=== PATIENT | female | born 1965 | race Caucasian/White ===

== ENCOUNTER 2017-03-24 17:51 | Emergency (ER) | payer OTHER, MEDICAID ==
[~2017-03-24] VITALS: Ht 175.3 cm; Wt 88.5 kg
[~2017-03-24 17:51] MED LIST: ACCUNEB SO1.25 MG/1; ACETAMINOPHEN-1 EAC1 PO; ACYCLOVIR 400400 MG PO; ALBUTEROL INH; ALBUTEROL SUL5 MG/M1; ALPRAZOLAM; AZITHROMYCIN 2250 MG PO; BACTRIM DS TAB1 EACH PO; CHILDREN'S1000 UNIT PO; CIPRO500 MG PO; CIPROFLOXACIN500 M1 PO; CIPROFLOXACIN500 M3 PO; CLONAZEPAM 0.50.5 M1 PO; COMBIVENT INH; CORTISPORIN OTI10 M2 OT; CRUTCH1 EACH MC; DELSYM COU30 MG/5 M1 PO; DIFLUCAN150 M1 PO; DIFLUCAN200 MG PO; DOXYCYCLINE 10100 M1 PO; DOXYCYCLINE 10100 MG PO; DUONEB 2.5-0.5 M3 ML INH; FLAGYL500 MG PO; FLEXERIL PO; FLOMAX PO; FLOMAX0.4 MG PO; FLONASE 0.05%50 MCG NASAL; FLOVENT; HYDROCHLOROTHIA25 M2 PO; HYDROCODONE-AP1 EAC6 PO; IBUPROFEN 800800 M1 PO; IBUPROFEN 800800 MG PO; KEFLEX500 MG PO; LATUDA20 MG PO; LEVSIN0.125 MG PO; LIDOCAINE VISC100 M1 TOP; LISINOPRIL; LOPRESSOR HCT1 EAC1; LOPRESSOR100 MG; LOPRESSOR50 PO; LORTAB 5-500 T1 EAC1 PO; MACROBID 100 M100 M3 PO; MEDROLDOSEPACK PO; METOPROLOL SUCC50 MG PO; MUCINEX DM ER1 EACH PO; NAPROSYN250 MG PO; NAPROSYN500 MG PO; NITROQUICK0.4 MG SL; NORCO 5-325 TA1 EAC1 PO; NORCO 5-325 TA1 EACH PO; ONDANSETRON HCL4 M2 PO; OXCARBAZEPINE300 M1 PO; OXCARBAZEPINE600 MG PO; PAXIL10 MG PO; PEPCID20 MG; PERCOCET 5-3251 EACH PO; PERCOCET PO; PHENAZOPYRIDIN200 M2 PO; PHENERGAN 25 MG25 M1 PO; PHENERGAN 25 MG25 MG PO; PREDNISONE 10 M10 MG PO; PREDNISONE 20 M20 M1; PREDNISONE 20 M20 M1 PO; PREDNISONE50 MG PO; PRINIVIL20 M1 PO; PROAIR HFA8.5 GM; PROAIR HFA8.5 GM INH; PROMETHAZINE D480 ML PO; PROMETHAZINE-C120 ML PO; PROMETHAZINE12.5 M1; PROMETHAZINE12.5 M1 PO; PROTONIX40 M4 PO; PROVENTIL HFA6.7 G1; PROVENTIL HFA6.7 G1 INH; SINGULAIR 10 MG10 M1 PO; SYMBICORT160 MCG/4. INH; TAMSULOSIN HCL0.4 M1 PO; TESSALON PERLE100 M1 PO; TESSALON PERLE100 MG PO; TOPROL XL100 MG; TOPROL XL100 MG PO; TRILEPTAL150 MG PO; ULTRAM 50MG TAB50 MG PO; VENTOLIN HFA 1818 GM INH; VIBRAMYCIN 100100 M2 PO; VICODIN; VICODIN 5-5001 EACH; VICODIN ES TAB1 EACH PO; VITAMIN D; XANAX XR1 MG PO; ZANTAC 150MG T150 MG PO; ZESTORETIC 10-1 EACH PO; ZOFRAN 4 MG ORAL4 M1 DIS; ZOFRAN4 MG PO; ZPAK PO; ZYPREXA
[2017-03-24 17:55] VITALS: BP 145/83
[2017-03-24] MEDS ORDERED: STRATTERA10 MG PO (17:59)
[2017-03-25] MEDS ORDERED: MEDROL DOSPAK21 TA1 PO (02:06)
[2017-03-25] MEDS ORDERED: K-DUR 20 MEQ T20 MEQ PO (02:06)
[2017-03-25] MEDS ORDERED: BACTRIM DS TAB1 EACH PO (02:06)
[2017-03-25] MEDS ORDERED: TESSALON PERLE100 MG PO (02:06)
[2017-03-25] MEDS ORDERED: ULTRAM50 MG PO (02:06)
[2017-03-25] MEDS ORDERED: KEFLEX500 M1 PO (02:32)
[2017-03-25] MEDS ORDERED: HYDROCODON-ACE1 EAC7 PO (02:32)
== END 2017-03-24 19:00 | disposition left against medical advice (07) ==
LOC: M.ERS 17:51
DX: Z53.21 Procedure and treatment not carried out due to patient leaving prior to being seen by health care provider (principal)

== ENCOUNTER 2017-03-25 00:38 | Emergency (ER) | payer OTHER, MEDICAID ==
[~2017-03-25] VITALS: Ht 175.3 cm; Wt 88.5 kg
--- NOTE | ~2017-03-25 | EKG ---
[place] [address] ELECTROCARDIOGRAM REPORT Name: YUE ANDRADE Room: [facility]#: [id number] Admission: 03/25/17 Attend Phys: Discharge: 03/25/17 Date of : 69 Report #: [id number] THIS REPORT FOR: //name// [facility] ED Test Date: 2017-03-25 Test Time: 01:04:45 Pat Name: YUE ANDRADE Department: Room: Gender: F Cerner Analyst: WIN Luo : 1965 Requested By: Blu Casas Order Number: [id number] MD: Measurements Intervals [place] Rate: 85 P: 20 CO: 146 QRS: -12 QRSD: 98 T: 52 QT: 444 QTc: 528 Interpretive Statements Sinus rhythm Probable left atrial enlargement Low voltage, precordial leads Borderline repolarization abnormality Prolonged QT interval Compared to ECG 06/30/2016 11:58:53 Low QRS voltage now present Prolonged QT interval now present [email or web address] By: 3 0104 Epiphany Epiphany, /EPI
[~2017-03-25 00:38] MED LIST changes: +STRATTERA10 MG PO
[2017-03-25 01:22] LABS: INFLUENZA A ANTIGEN None Detected (None Detect); INFLUENZA B ANTIGEN None Detected (None Detect)
[2017-03-25 01:35] LABS: ABSOLUTE EOSINOPHILS 0.3 thou/uL (0.0-0.7); ABSOLUTE LYMPHOCYTES 2.4 thou/uL (0.8-5.3); ABSOLUTE MONOCYTES 0.6 thou/uL (0.0-1.2); ABSOLUTE NEUTROPHILS 5.8 thou/uL (1.6-8.1); BASOPHILS 0.4 %; EOSINOPHILS 2.8 %; HEMATOCRIT 37.1 % (37.0-47.0); HEMOGLOBIN 12.9 gm/dL (12.0-15.0); LYMPHOCYTES 26.6 %; MCH 31.6 pg (26.0-34.0); MCHC 34.7 g/dL (28.0-37.0); MCV 91.1 fL (80.0-100.0); MONOCYTES 6.8 %; MPV 7.8 fl. (7.2-11.1); NUCLEATED RBCS 0 /100WBC; PLATELET COUNT* 297 thou/uL (150-400); POLYS 63.4 %; RBC 4.08 mil/uL (4.20-5.00); RDW-CV 12.2 % (10.5-14.5); WBC 9.2 thou/uL (4.0-11.0)
[2017-03-25 01:44] LABS: ANION GAP 13 mmol/L (7-16); BUN 11 mg/dL (7-18); CALCIUM 9.3 mg/dL (8.5-10.1); CHLORIDE 101 mmol/L (98-107); CO2 25 mmol/L (21-32); CREATININE 1.2 mg/dL (0.6-1.3); GLUCOSE 142 mg/dL (70-99); SODIUM 139 mmol/L (136-145)
[2017-03-25 01:49] LABS: POTASSIUM 2.8 mmol/L (3.5-5.1)
[2017-03-25 01:55] LABS: ALBUMIN 3.6 g/dL (3.4-5.0); ALKALINE PHOSPHATASE 115 U/L (46-116); NT-PRO BRAIN NAT PEPTIDE 98 pg/mL (<300); SGOT 33 U/L (15-37); SGPT 27 U/L (30-65); TOTAL BILIRUBIN 0.3 mg/dL (<0.1-1.0); TOTAL PROTEIN 7.4 g/dL (6.4-8.2); TROPONIN-I LEVEL <0.06 ng/mL (<0.06)
[2017-03-25] MEDS ORDERED: BACTRIM DS TAB1 EACH PO (02:06)
[2017-03-25] MEDS ORDERED: K-DUR 20 MEQ T20 MEQ PO (02:06)
[2017-03-25] MEDS ORDERED: TESSALON PERLE100 MG PO (02:06)
[2017-03-25] MEDS ORDERED: ULTRAM50 MG PO (02:06)
[2017-03-25] MEDS ORDERED: MEDROL DOSPAK21 TA1 PO (02:06)
[2017-03-25] MEDS ORDERED: KEFLEX500 M1 PO (02:32)
[2017-03-25] MEDS ORDERED: HYDROCODON-ACE1 EAC7 PO (02:32)
[2017-03-25 02:38] VITALS: BP 137/77
== END 2017-03-25 02:40 | disposition home or self-care (01) ==
LOC: M.ERS 00:38
PROVIDERS: Emergency Medicine
DX: N61.0 Mastitis without abscess (principal); J40 Bronchitis, not specified as acute or chronic; E87.6 Hypokalemia; F32.9 Major depressive disorder, single episode, unspecified; I10 Essential (primary) hypertension; J44.9 Chronic obstructive pulmonary disease, unspecified; F41.9 Anxiety disorder, unspecified; F17.210 Nicotine dependence, cigarettes, uncomplicated; Z86.14 Personal history of Methicillin resistant Staphylococcus aureus infection; Z88.5 Allergy status to narcotic agent; Z86.73 Personal history of transient ischemic attack (TIA), and cerebral infarction without residual deficits; Z90.49 Acquired absence of other specified parts of digestive tract; Z88.0 Allergy status to penicillin; Z88.1 Allergy status to other antibiotic agents; Z91.040 Latex allergy status; Z88.8 Allergy status to other drugs, medicaments and biological substances

== ENCOUNTER 2017-04-11 13:09 | Inpatient (IN) | payer OTHER, MEDICAID ==
[~2017-04-11] VITALS: Ht 175.3 cm; Wt 95.3 kg
[~2017-04-11 13:09] MED LIST changes: +HYDROCODON-ACE1 EAC7 PO; +K-DUR 20 MEQ T20 MEQ PO; +KEFLEX500 M1 PO; +MEDROL DOSPAK21 TA1 PO; +ULTRAM50 MG PO
[2017-04-11 13:13] VITALS: BP 166/108
[2017-04-11 14:55] LABS: ABSOLUTE EOSINOPHILS 0.1 thou/uL (0.0-0.7); ABSOLUTE LYMPHOCYTES 2.5 thou/uL (0.8-5.3); ABSOLUTE MONOCYTES 0.6 thou/uL (0.0-1.2); ABSOLUTE NEUTROPHILS 7.1 thou/uL (1.6-8.1); BASOPHILS 0.2 %; EOSINOPHILS 1.1 %; HEMOGLOBIN 15.4 gm/dL (12.0-15.0); MCH 32.1 pg (26.0-34.0); MCHC 33.4 g/dL (28.0-37.0); MONOCYTES 5.5 %; MPV 8.3 fl. (7.2-11.1); NUCLEATED RBCS 0 /100WBC; PLATELET COUNT* 250 thou/uL (150-400); POLYS 69.2 %; RBC 4.79 mil/uL (4.20-5.00); RDW-CV 12.9 % (10.5-14.5); WBC 10.3 thou/uL (4.0-11.0)
[2017-04-11 15:10] LABS: ANION GAP 11 mmol/L (7-16); BUN 13 mg/dL (7-18); CALCIUM 10.1 mg/dL (8.5-10.1); CHLORIDE 103 mmol/L (98-107); CO2 26 mmol/L (21-32); CREATININE 1.3 mg/dL (0.6-1.3); GLUCOSE 139 mg/dL (70-99); SODIUM 140 mmol/L (136-145)
[2017-04-11 15:21] LABS: ALBUMIN 3.9 g/dL (3.4-5.0); ALKALINE PHOSPHATASE 116 U/L (46-116); NT-PRO BRAIN NAT PEPTIDE 125 pg/mL (<300); SGOT 26 U/L (15-37); SGPT 28 U/L (30-65); TOTAL BILIRUBIN 0.5 mg/dL (<0.1-1.0); TROPONIN-I LEVEL <0.06 ng/mL (<0.06)
[2017-04-11 16:21] LABS: INFLUENZA A ANTIGEN None Detected (None Detect); INFLUENZA B ANTIGEN None Detected (None Detect)
[2017-04-11 17:58] LABS: URINE BILIRUBIN NEGATIVE (Negative); URINE BLOOD TRACE (Negative); URINE CLARITY CLEAR; URINE COLOR YELLOW; URINE GLUCOSE-RANDOM NEGATIVE (Negative); URINE KETONES NEGATIVE (Negative); URINE LEUKOCYTES-REFLEX TRACE (Negative); URINE NITRITE-REFLEX NEGATIVE (Negative); URINE PROTEIN NEGATIVE (Negative); URINE SPECIFIC GRAVITY <= 1.005 (1.005-1.030); URINE UROBILINOGEN 0.2 E.U./dl (0.2-1.0)
[2017-04-11 18:08] LABS: AMP/METHAMP Negative (Negative); BARBITURATES Negative (Negative); BENZODIAZEPINES Negative (Negative); COCAINE Negative (Negative); METHADONE Negative (Negative); OPIATES Negative (Negative); PCP Negative (Negative); THC Negative (Negative)
[2017-04-11 18:15] LABS: MUCUS None Seen strn/LPF (None Seen); SQUAMOUS >10 Many /LPF (0-3)
[2017-04-11 18:16] LABS: CALCIUM OXALATE 4-10 Moderate /LPF (None Seen)
[2017-04-11 18:17] LABS: CASTS None Seen /LPF (None Seen); URINE WBC-REFLEX 0-5 Rare /HPF (0-5)
[2017-04-11 18:18] LABS: URINE RBC 0-2 Rare /HPF (0-2)
[2017-04-11 20:03] VITALS: BP 129/73
[2017-04-11 20:30] VITALS: BP 138/97
[2017-04-11] MEDS ORDERED: TOPAMAX 25 MG T25 M1 PO (21:44)
[2017-04-11] MEDS ORDERED: LOPERAMIDE 2 MG2 M1 PO (21:45)
[2017-04-11 23:54] VITALS: BP 109/68
--- NOTE | 2017-04-12 03:00 | NUR ---
REC PT FROM ED APPROX 2029, PT A/OX4, ANXIOUS, STATING SHE NEEDS HER ANXIETY MEDICATION, REVIEWED HOME MEDS, DR MOORE STARTED HOME MEDS, MEDS/ASSESSMENT COMPLETED PER CHARTING, VSS, IV TO THE R-FOOT WITH NS RUNNING AT THIS TIME, PT UP WITH ASSIST X1, REC FALL AT HOME <3 MONTHS, FREE FROM PAIN, HOURLY ROUNDING/FALL PRECAUTIONS IN PLACE, PT EDUCATED ON ENVRIOMENT OF ROOM, CALL LIGHT, AND PT STATED, "I'LL PUT THE BUTTON ON THE CALL LIGHT, BUT IT'S A I'LL HIT IT, I'LL SET THE BED ALARM OFF, AND YOU BETTER COME RUNNING FOR ME,", AFTER PT HS MEDS GIVEN PT WAS ABLE TO REST, 2ND BOLUS OF NS DUE TO ELEVATED LACTIC ACID INFUSING AT THIS TIME PER DR DILL ORDERS, WILL CONT TO MONITOR.
[2017-04-12 04:17] VITALS: BP 129/76
[2017-04-12 05:08] LABS: HEMATOCRIT 36.1 % (37.0-47.0); MCH 31.2 pg (26.0-34.0); MCHC 34.5 g/dL (28.0-37.0); MPV 8.2 fl. (7.2-11.1); NUCLEATED RBCS 0 /100WBC; PLATELET COUNT* 189 thou/uL (150-400); RBC 3.99 mil/uL (4.20-5.00); RDW-CV 12.5 % (10.5-14.5); WBC 11.3 thou/uL (4.0-11.0)
[2017-04-12 05:20] LABS: CALCIUM 9.1 mg/dL (8.5-10.1); CREATININE 1.2 mg/dL (0.6-1.3); POTASSIUM 3.9 mmol/L (3.5-5.1)
[2017-04-12 05:36] LABS: HEMOGLOBIN 12.5 gm/dL (12.0-15.0); MCV 90.5 fL (80.0-100.0)
[2017-04-12 06:11] LABS: ABSOLUTE LYMPHOCYTES 1.4 thou/uL (0.8-5.3); ABSOLUTE MONOCYTES 0.1 thou/uL (0.0-1.2); ABSOLUTE NEUTROPHILS 9.8 thou/uL (1.6-8.1); ANISOCYTOSIS 1+; PLATELET ESTIMATE ADEQUATE; POIKILOCYTOSIS 1+
[2017-04-12 08:00] VITALS: BP 120/70
--- NOTE | 2017-04-12 09:30 | NUR ---
RECEIVED REPORT. ASSUMED CARE OF PT AT 0730. VSS. O2 SAT 97% ON ROOM AIR. PT A&O X4, BUT DROWSY. MANAGER FLEET IN PLACE TRACING SR. IV PATENT AND INFUSING. PT EATING AND DRINKING WITHOUT ISSUE. PT UP WITH STANDBY ASSIST TO THE BATHROOM. AM ASSESSMENT AND VITALS COMPLETED CHARTED. PT REPORTS CHEST DISCOMFORT THAT HAS BEEN GOING ON FOR 6 WEEKS, BUT DENIES NEEDING MEDICATIN FOR PAIN. PT INFORMED OF PLAN OF CARE; PT COMMUNICATES UNDERSTANDING. PT IMPULSIVE AT TIMES AND DOES NOT ALWAYS PUSH THE CALL LIGHT FOR ASSISTANCE WITH AMBULATING. EDUCATION GIVEN ON IMPORTANCE OF CALLING FOR HELP - PT COMMUNICATES UNDERSTANDING BUT STATES "IF I HAVE TO GET TO THE BATHROOM, THEN I'M GONNA GET THERE". HIGH FALL RISK PRECATUTIONS IN PLACE. CALL LIGHT IS WITHIN REACH. BED ALARM IS ON. WILL CONTINUE TO MONITOR.
--- NOTE | 2017-04-12 10:23 | EKG ---
[place] [address] ELECTROCARDIOGRAM REPORT Name: RAYMOND,YUE LALA Room: [address] ADM IN M.R.#: [id number] Admission: 04/11/17 Attend Phys: Yifan Carbajal MD Discharge: Date of : 69 Report #: [id number] THIS REPORT FOR: //name// ED Test Date: 2017-04-11 Test Time: 13:14:52 Pat Name: YUE ANDRADE Department: Room: [facility] Gender: F Clinical Assoc: Emily NIXON : 1965 Requested By: Talya Tapia Order Number: [id number] MD: Polo Sanford Measurements Intervals [place] Rate: 116 P: 49 OR: 146 QRS: 18 QRSD: 94 T: 86 QT: 329 QTc: 458 Interpretive Statements Sinus tachycardia Minimal ST depression, lateral leads Compared to ECG 03/25/2017 01:04:45 ST (T wave) deviation now present Sinus rhythm no longer present Prolonged QT interval no longer present Electronically Signed On 04-12-2017 10:23:29 MEDICAL SCRIBE by Polo Sanford [email or web address] <ELECTRONICALLY SIGNED> By: Polo Sanford MD, [facility] 04/12/17 1023 1314 1314 Polo Sanford MD, [facility] /EPI
[2017-04-12 12:20] VITALS: BP 132/74
--- NOTE | 2017-04-12 14:02 | NUR ---
CM ASSESSMENT: Pt is A&O. Resides at home with her mon and kids. Independent with ADLs. No DME. Hx of HH with [facility]. No hx of SNF. Supportive family that is involved in POC. Goal is to return home once medically stable. Following for dc needs.
[2017-04-12 15:39] VITALS: BP 124/69
--- NOTE | 2017-04-12 15:45 | NUR ---
PT PRESSED CALL LIGHT AND THEN BEGAN SCREAMING FOR HELP FROM HER ROOM - UPON ENTERING THE ROOM PT WAS SITTING UP ON THE BED, ROCKING AND CRYING. PT STATES "I FEEL HOT AND SWEATY AND THINK I'M GOING TO HAVE A SEIZURE!" PT NOT SWEATY TO TOUCH. NEURO CHECKS DONE - NO ABNORMALITIES NOTED. PT STATES HER LEGS FEEL NUMB. PT DISREGARDING EDUCATION DONE EARLIER IN THE SHIFT ABOUT THE IMPORTANCE OF AVOIDING COLD FLUIDS/ TEMPERATURES TO MINIMIZE PAIN FROM REYNAUDS SYNDROME. PT REQUESTING THE ROOM BE " COLD POSSIBLE" AND HAS ASKED FOR 2 ICE PACKS. THERAPEUTIC COMMUNICATION INITIATED, PT CALMED SOMEWHAT. REASSURANCE GIVEN. DR DE LEON NOTIFIED OF EPISODE. WILL AWAIT ORDERS. HIGH FALL RISK PRECAUTIONS IN PLACE. BED ALARMS IS ON. CALL LIGHT WITHIN REACH. WILL CONTINUE TO MONITOR.
--- NOTE | 2017-04-12 19:02 | NUR ---
VSS. O2 SAT >90% ON ROOM AIR. QA DEVELOPER IN PLACE TRACING SR/ST. PT HAS REPORTED NO OTHER PAIN OTHER THAN THE CHEST PAIN SHE REPORTED THIS AM - PT HAS DENIED WANTING MEDICATION FOR PAIN. PT CALMED DOWN FROM EARLIER EPISODE OF ANXIETY. DR DE LEON NOTIFED OF EPISODE - NICOTENE PATCH ORDERED. PT EATING AND DRINKING WITHOUT ISSUE. PT COMPLAINING OF HOT FLASHES, SWEATING, AND ANXIETY - WANTS THE NICOTENE PATCH. PT REASSURED THAT IT WOULD BE ADMINISTERED JUST SOON IT IS VERIFIED BY PHARMACY. PT COMMUNICATES UNDERSTANDING. PT UP TO THE BATHROOM WITH STANDBY ASSIST. VOIDING WITHOUT ISSUE. FAMILY VISITED THIS ATERNOON. IV PATENT AND INFUSING. PT REPOSITIONS SELF FREQUENTLY IN THE BED. HIGH FALL RISK PRECATIONS IN PLACE. CALL LIGHT IS WITHIN REACH. HOURLY ROUNDING PERFORMED. WILL CONTINUE TO MONITOR FOR DURATION OF SHIFT.
[2017-04-13] VITALS (8 sets, daily range): BP systolic 117–176; BP diastolic 53–87
--- NOTE | 2017-04-13 05:09 | NUR ---
PATIENT SLEPT PART OF THE NIGHT. NICOTINE PATCH WAS PLACE BEGINNING OF SHIFT PER PATIENT REQUEST. PATIENT BECAME INCREASINGLY ITCHY THROUGHOUT THE SHIFT. PATIENT HAD ASKED IF NICOTINE PATCH HAD LATEX IN IT INFORMED HER THAT IT SHOULDN'T. BENADRYL PO WAS GIVEN ABOUT 0130. PATIENT CALLED OUT ABOUT 0330 STILL COMPLAINING OF ITCHING. PATIENT WAS SCRATCHING ALL OVER AND ROLLING AROUND THE BED FREAKING OUT. NICOTINE PATCH WAS TAKEN OFF AND IV BENADRYL WAS GIVEN. PATIENT CALMED DOWN AFTER THAT. IV REMAINS TO RIGHT FOOT WITH IV FLUIDS INFUSING. WILL CONTINUE TO MONITOR.
--- NOTE | 2017-04-13 07:57 | CON ---
[address] [address] CONSULTATION Name: YUE ANDRADE Room: [address] IN M.R.#: [id number] Admission: 04/11/17 Attend Phys: Yifan Carbajal MD Discharge: Date of : 69 Report #: [id number] THIS REPORT FOR: //name// CC: Yifan Carbajal [facility] physician/PCP DATE OF SERVICE: 04/12/2017 INFECTIOUS DISEASE CONSULTATION ATTENDING PHYSICIAN: Yifan Carbajal MD REASON FOR EVALUATION: Pneumonitis. HISTORY OF PRESENT ILLNESS: Chart reviewed, patient is examined. This is a 51-year-old whom I am familiar with. She has extensive medical history given her age, including some COPD, lupus, history of pneumonitis. She was admitted with several days to a week history of progressive dyspnea with cough, some of which has been productive; other times more dry and hacky. She has had intermittent fevers, sweats, has had some anorexia, poor p.o. intake and perhaps weight loss as well. Evaluation included chest x-ray, which showed no acute process. Lactic acid was initially elevated at 2.1, it has increased to 3.3. Blood cultures are sterile thus far. She is not encephalopathic. She was empirically started on antibacterial antibiotics with vancomycin. ALLERGIES: LISTED TO TAPE, PENICILLIN, GUAIFENESIN, PROCHLORPERAZINE, MORPHINE, ERYTHROMYCIN, TOBRAMYCIN, CLINDAMYCIN, CLARITHROMYCIN, TRAMADOL, KETOROLAC, TAMSULOSIN, LEVOFLOXACIN, AND LATEX. CURRENT MEDICATIONS: Include topiramate, lisinopril, vancomycin, pantoprazole, methylprednisolone, clonazepam, montelukast, enoxaparin, ipratropium and albuterol inhaler, p.r.n. analgesics, antiemetics. 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 SOCIAL HISTORY: Continues to smoke, occasional ethanol. Denies illicit drug use. FAMILY HISTORY: Noncontributory. REVIEW OF SYSTEMS: As above. PHYSICAL EXAMINATION: [place] [address] CONSULTATION Name: YUE ANDRADE LALA Room: [address] IN [facility]#: [id number] Admission: 04/11/17 Attend Phys: Yifan Carbajal MD Discharge: Date of : 69 Report #: [id number] GENERAL: She appears chronically ill, undernourished. She is pleasant, cooperative. She is in [id number] distress. She does have occasional cough. VITAL SIGNS: Temperature 98.9, pulse 94, respirations 24, blood pressure 120/70. SKIN: Warm, dry, no rashes. HEENT: Otherwise, unremarkable. NECK: Supple. LUNGS: Scattered coarse breath sounds. HEART: Regular, occasional ectopy, may have a soft systolic murmur. ABDOMEN: Soft, nontender. There is no distention. I do not appreciate any peritoneal signs. GENITOURINARY AND RECTAL: Deferred. LABORATORY DATA: Lactic acid 3.3. Blood cultures sterile thus far. CBC: White count 11.3, H and H 12.5 and 36.1, platelets 189 and leukocyte neutrophilia. Electrolytes: Sodium 138, potassium 3.9, chloride 108, bicarbonate is 19, anion gap of 11, BUN and creatinine 12 and 1.2. Estimated GFR 48. Lactic acid had peaked to 5.5. Urinalysis 0-[address] chest showed no acute-appearing abnormalities, right lower lobe nodule. Influenza antigen was negative. Liver functions unremarkable. ASSESSMENT: Productive cough at times. The patient likely has underlying significant reactive airway disease, may well be viral. We will continue vancomycin. She has multiple drug hypersensitivities, at least adverse drug effects. We will see if we can obtain a sputum and go ahead and check a viral respiratory panel as well. At this point, she is not overtly toxic. Try to maintain supportive care, increase activity, optimize her nutritional status. <ELECTRONICALLY SIGNED> By: Rikki Gill MD 04/13/17 0757 1039 [id number] Gill MD /nt
--- NOTE | 2017-04-13 08:00 | NUR ---
AM ASSESSMENT COMPLETE, DEFER TO COMPUTER CHARTING. ELECTRICAL INSTALLER TRACKING SR. ALERT ORIENTED, ANXIOUS - REASSSURANCE GIVEN. REPORTING CONTINUES TO HAVE CHEST PRESSURE AND GASTRIC REFLUX - REPORTS DISCOMFORT SAME SINCE ADMISSION, MAYBE SLIGHTLY LESS. IV INFUSING IN RIGHT FOOT. CALL LIGHT WITHIN REACH, WILL MONITOR.
--- NOTE | 2017-04-13 10:02 | CON ---
[address] [address] CONSULTATION Name: YUE ANDRADE Room: [address] IN M.R.#: [id number] Admission: 04/11/17 Attend Phys: Yifan Carbajal MD Discharge: Date of : 69 Report #: [id number] THIS REPORT FOR: //name// CC: Yifan Carbajal [facility] physician/PCP REASON FOR CONSULTATION: Cough and shortness of breath. HISTORY OF PRESENT ILLNESS: The patient is a 51-year-old female patient with history of common variable immunodeficiency. She follows pulmonary group at [facility] for asthma and COPD. Unfortunately, she continues to smoke. She is on Advair and bronchodilator at home. She presented to the hospital with cough and congestion associated with shortness of breath. She reports that she has seen multiple physicians and multiple specialties in the past, and now she is aware she has common variable immunodeficiency and she has no immunity against infection. She had multiple hospitalizations in other facilities for infection in the past. Apparently, she received two courses of antibiotics, doxycycline and Bactrim over the last few days. Also, she had azithromycin that she has to take it, but she developed shortness of breath, worsening, and she presented to the ER. She was admitted for further evaluation. She denied any nausea, vomiting, travel or sick contact. She denies any lower extremity edema, calf tenderness, headache or blurring of vision. ALLERGIES: MORPHINE, PENICILLIN, TRAMADOL, CLARITHROMYCIN, CLINDAMYCIN, GUAIFENESIN, KETOROLAC, COMPAZINE, LEVAQUIN, TAPE AND TOBRAMYCIN. HOME MEDICATIONS: She is on DuoNeb, Tessalon Perles, potassium supplement. She was on Septra, Medrol-Dosepak, Tramadol. She is currently on albuterol sulfate, Xanax, lisinopril, Flonase, Singulair, Symbicort, paroxetine, naproxen. PAST MEDICAL HISTORY: She has history of Raynaud's syndrome, common variable immunodeficiency, history of TIA, history of DVT in 2007, history of depression, ovarian cyst, asthma, COPD. She has history of factor V Leiden. She had history of recurrent sinusitis. She is diabetic and has gastroesophageal reflux disease. She has history of C. diff, VRE and MRSA in 2008. She has history of kidney stone disease, bowel resection. PAST SURGICAL HISTORY: Includes cholecystectomy, ovarian cyst. SOCIAL HISTORY: She continues to smoke 1 pack of cigarettes per day, does not drink alcohol excessively, does not abuse drugs. There is a mention of meth abuse in her chart. FAMILY HISTORY: [place] [address] CONSULTATION Name: RAYMONDYUE ANN Room: [address] IN M.R.#: [id number] Admission: 04/11/17 Attend Phys: Yifan Carbajal MD Discharge: Date of : 69 Report #: [id number] REVIEW OF SYSTEMS: She denied fever, chills or blurring of vision. She has history of sinus congestion, but she denied dysphagia. She has history of cough which is chronic. She denies any anxiety, depression. The rest of the review system was negative. PHYSICAL EXAMINATION: VITAL SIGNS: On examination, she is on room air with O2 saturation more than 90%, blood pressure 120/70, pulse rate of 94, temperature 36.8. HEENT: Head is normocephalic, atraumatic. Pupils are equal, reactive to light. Extraocular movements are intact. NECK: Supple. No palpable lymph node. No palpable thyroid. Trachea is central. External ear looks healthy and normal. Nasal passage is patent. CHEST: Diminished air movement bilaterally, prolonged expiratory phase. No definite wheezes or crackles. HEART: S1, S2, no murmur. ABDOMEN: Benign, soft, lax, nontender. LOWER EXTREMITIES: No edema, no calf tenderness. PSYCHIATRIC: Mood and affect appropriate. NEUROLOGIC: Moving 4 extremities spontaneously. No focal weakness. Good insight and judgment. MUSCULOSKELETAL: Normal inspection. No deformities. No contractures, no joint abnormalities. LABORATORY DATA: Her white blood count 10.3, hemoglobin 15.4, platelets 250. Her creatinine is 1.2. BNP was not elevated. Her D-dimer was not elevated. Her urine drug screen was negative. Alcohol not detectable. Influenza A and B rapid screen negative. She had a CT scan of the chest without contrast, did not show acute abnormalities, showed stable pulmonary nodule going back to 2016. Her chest x-ray also did not show acute pathology. IMPRESSION: 1. Chronic obstructive pulmonary disease exacerbation. 2. Chronic cough. 3. Common variable immunodeficiency. 4. Smoker. 5. Possible sepsis. PLAN: At this point, I would continue the steroids, antibiotics, bronchodilator, make sure she is treated for gastroesophageal reflux disease and sinus problems. She is currently on Flonase. We can consider Atrovent nasal spray. She has multiple reasons to have a chronic cough including her smoking, and I would anticipate she will continue to have the cough as long as she smokes, but again she had other reasons. I agree with antibiotics since at this point, given her immunodeficiency, infection could not be ruled out. Discussed with the patient in detail. [address] [address] CONSULTATION Name: YUE ANDRADE Room: [address] IN M.R.#: [id number] Admission: 04/11/17 Attend Phys: Yifan Carbajal MD Discharge: Date of : 69 Report #: [id number] Thank you for the consult. <ELECTRONICALLY SIGNED> By: Jose West MD 04/13/17 1002 1026 1151Djusto West MD /nt
--- NOTE | 2017-04-13 15:57 | 2DMMODE ---
[place] [address] 2 D/M-MODE ECHOCARDIOGRAM Name: YUE ANDRADE Room: [address] IN [facility]#: [id number] Admission: 04/11/17 Attend Phys: Yifan Carbajal, Discharge: Date of : 69 Date of Service: 04/13/17 1557 Report #: [id number] THIS REPORT FOR: //name// APPROVED REPORT Study performed: 04/13/2017 14:47:06 EXAM: Comprehensive 2D, Doppler, and color-flow Echocardiogram Patient Location: In-Patient Room #: 222 Status: routine BSA: 2.07 HR: 81 bpm BP: 176/71 mmHg Rhythm: NSR Other Information Study Quality: Good Indications Dyspnea 2D Dimensions LVEF(%): 70.65 (>50%) IVSd: 13.76 (7-11mm) LVOT Diam: 20.66 (18-24mm) LVDd: 48.01 mm PWd: 11.78 (7-11mm) Ascending Ao: 34.95 (22-36mm) LVDs: 28.76 (25-40mm) Aortic Root: 32.83 mm Grimm's LVEF: 70.65 % Volumes Left Atrial Volume (Systole) LA ESV Index: 30.30 mL/m2 Aortic Valve AoV Peak Carlo.: 1.95 m/s AO Peak Gr.: 15.20 mmHg LVOT Max P.81 mmHg AO Mean Gr.: 8.19 mmHg LVOT Mean P.78 mmHg LVOT Max V: 1.79 m/s AO V2 VTI: 39.11 cm LVOT Mean V: 1.09 m/s PRICSILA (VTI): 3.33 cm2 LVOT V1 VTI: 38.93 cm Mitral Valve E/A Ratio: 1.11 [place] [address] 2 D/M-MODE ECHOCARDIOGRAM Name: YUE ANDRADE Room: [address] IN .R.#: [id number] Admission: 04/11/17 Attend Phys: Yifan Carbajal, Discharge: Date of : 69 Date of Service: 04/13/17 1557 Report #: [id number] MV Decel. Time: 246.56 ms MV E Max Carlo.: 1.61 m/s MV PHT: 71.50 ms MVA (PHT): 3.08 cm2 TDI E/Lateral E': 17.89 E/Medial E': 17.89 Medial E' Carlo.: 0.09 m/s Lateral E' Carlo.: 0.09 m/s Pulmonary Valve PV Peak Carlo.: 1.09 m/s PV Peak Gr.: 4.76 mmHg Tricuspid Valve TR Peak Gr.: 29.98 mmHg RVSP: 34.00 mmHg Left Ventricle The left ventricle is normal size. There is normal LV segmental wall motion. Mild concentric left ventricular hypertrophy. Left ventricular systolic function is normal. LVEF is 60-65%. Transmitral Doppler flow pattern suggests impaired LV relaxation. Right Ventricle The right ventricle is normal size. The right ventricular systolic function is normal. Atria Left atrium is mildly dilated. The right atrium size is normal. Aortic Valve The aortic valve is normal in structure. At least moderate to possibly severe aortic insufficiency. There is no aortic valvular stenosis. Mitral Valve The mitral valve is normal in structure. Trace mitral regurgitation. No evidence of mitral valve stenosis. Tricuspid Valve The tricuspid valve is normal in structure. Trace tricuspid regurgitation. The RVSP is 30-35 mmHg. Pulmonic Valve The pulmonary valve is normal in structure. There is no pulmonic [place] [address] 2 D/M-MODE ECHOCARDIOGRAM Name: YUE ANDRADE LALA Room: [address] IN .R.#: [id number] Admission: 04/11/17 Attend Phys: Yifan Carbajal, Discharge: Date of : 69 Date of Service: 04/13/17 1557 Report #: [id number] Great Vessels The aortic root is normal in size. IVC is normal in size and collapses with >50% inspiration Pericardium There is no pericardial effusion. <Conclusion> The left ventricle is normal size. Mild concentric left ventricular hypertrophy. Left ventricular systolic function is normal. LVEF is 60-65%. Transmitral Doppler flow pattern suggests impaired LV relaxation. Left atrium is mildly dilated. At least moderate to possibly severe aortic insufficiency. Trace mitral regurgitation. Trace tricuspid regurgitation. The RVSP is 30-35 mmHg. Consider transesophageal echocardiogram to further evaluate aortic valve and aortic insufficiency if clinically indicated. <ELECTRONICALLY SIGNED> By: Lito Cole MD, FACC 04/13/17 1557 1557 1557 Lito Cole MD, FACC /INF
--- NOTE | 2017-04-13 16:00 | NUR ---
PATIENT COMING TO NURSE STATION - STATING NEEDING TO BE DISCHARGE BECAUSE SHE DID'NT HAVE ANYWHERE TO GO, CONTINUED TO STATE HER MOM STATES SHE CAN'T COME HOME THAT SHE NEEDS TO GO TO RETIREMENT. PATIENT REQUESTING TO SPEAK TO CASE MGMT ABOUT GOING TO RETIREMENT. CASE MGMT PAGED TO NOTIFY.
--- NOTE | 2017-04-13 16:40 | NUR ---
PATIENT REPORTING SPOKE AGIAN WITH HER MOTHER, HAS PLACE TO GO AT DISCHARGE. CASE MGMT INTO SEE PATIENT AND DISCUSS PLANS AT DISCHARGE. PATIENT STATES WANTING TO STAY AND NOT WANTING TO BE DISCHARGED UNTIL SHE HAS DX AND DOCTOR FEELS SHE IS READAY. ANXIOUS, REASSURANCE GIVEN.
--- NOTE | 2017-04-13 18:12 | NUR ---
EQUIPMENT PLANNER TRACKING WITH NO CHANGE IN RHYTHM. ANXIOUS ON AND OFF DURING SHIFT, REASSURANCE GIVEN. TOLERATING DIET WITH NO COMPLAINTS OF NAUSEA - NO COMPLAINTS OF DIZZINESS OR PAIN AT THIS TIME. UP AMBULATING IN [place] TODAY. CALL LIGHT WITHIN REACH. WILL CONTINUE WITH PLAN OF CARE.
[2017-04-13 21:07] LABS: IgA 144 mg/dL (87-352); IgG 794 mg/dL (700-1600)
[2017-04-14] VITALS (19 sets, daily range): BP systolic 122–207; BP diastolic 67–115
[2017-04-14 05:05] LABS: HEMATOCRIT 31.2 % (37.0-47.0); HEMOGLOBIN 10.8 gm/dL (12.0-15.0); MCH 32.3 pg (26.0-34.0); MCHC 34.5 g/dL (28.0-37.0); MCV 93.7 fL (80.0-100.0); MPV 8.4 fl. (7.2-11.1); RBC 3.33 mil/uL (4.20-5.00); RDW-CV 13.2 % (10.5-14.5); WBC 12.5 thou/uL (4.0-11.0)
[2017-04-14 05:28] LABS: CREATININE 1.1 mg/dL (0.6-1.3); POTASSIUM 3.4 mmol/L (3.5-5.1)
--- NOTE | 2017-04-14 05:38 | NUR ---
PT A/OX4, SR ON THE MONITOR, RA, VSS, MEDS/ASSESSMENT PER CHARTING, HOURLY ROUNDING AND FALL PRECAUTIONS IN PLACE, PT SAT OFF BED ALARM MULTIPLE TIMES WHEN GETTING OUT OF BED WITHOUT USING CALL LIGHT, PT EDUCATED ON FALL PRECAUTIONS AND SHE BEGAN USING CALL LIGHT AT TIMES, WHEN REC REPORT ON PT AT THE START OF THIS SHIFT, DAY RN REPORTED PT HAD NO IV ACCESS AND DR LACEY REPROTED IT WAS OK, NO NOTE/ORDER NOTED REGARDING NO IV ACCESS, WILL REQUEST ORDER FROM PT STATED SHE IS NOT GOING TO LET SOMEONE STICK HER AGAIN, POTASSIUM LOW THIS AM, WILL NOTIFY DOCTOR PT IS NOT CURRENTLY ON ELECTOLYTE PROTOCOL, WILL CONT TO MONITOR.
[2017-04-14 09:15] LABS: IgM 43 mg/dL (26-217)
--- NOTE | 2017-04-14 15:15 | TEE ---
[place] [address] TRANSESOPHAGEAL ECHOCARDIOGRAM Name: RAYMONDYUE LALA Room: [address] IN [facility]#: [id number] Admission: 04/11/17 Attend Phys: Yifan Carbajal, Discharge: Date of : 69 Date of Service: 04/14/17 1515 Report #: [id number] THIS REPORT FOR: //name// APPROVED REPORT Study performed: 04/14/2017 13:52:49 EXAM: Transesophageal Echocardiogram Patient Location: In-Patient Room #: 222 Status: routine BSA: 2.11 HR: 70 bpm BP: 155/75 mmHg Rhythm: NSR Other Information Study Quality: Good Indications Aortic Valve Disease murmur Echo Enhancing Agent Comments: No bubble study performed. IV went bad after injection of medications. Procedure After obtaining informed consent, patient underwent transesophageal echo in the Dental Assistant Medical Assistant Holding. Type of Sedation : Conscious Sedation Sedation was administered by Vannesa Neil RN. Sedation start time: 1410 Case end Time: 1440 Versed (12) Fentanyl (125) Transesophageal probe was inserted and advanced into esophagus without difficulty by Polo Sanford MD, FACC. The SONY was performed without complications. Throughout the procedure, the blood pressure, pulse oximetry, cardiac rhythm, and rate were monitored. The patient tolerated the procedure without adverse effects. Recovery from conscious sedation was uneventful and vital signs were stable. Left Ventricle The left ventricle is normal size. There is [place] [address] TRANSESOPHAGEAL ECHOCARDIOGRAM Name: YUE ANDRADE Room: [address] [facility].#: [id number] Admission: 04/11/17 Attend Phys: Yifan Carbajal, Discharge: Date of : 69 Date of Service: 04/14/17 1515 Report #: [id number] motion. Mild concentric left ventricular hypertrophy. Left ventricular systolic function is normal. The left ventricular ejection fraction is within the normal range. LVEF is >70%. Right Ventricle The right ventricle is normal size. The right ventricular systolic function is normal. Atria Left atrium is moderately dilated. no left atrial appendage thrombus was noted The right atrium size is normal. Aortic Valve The Aortic valve is sclerotic. Moderate aortic regurgitation. There is no aortic valvular stenosis. Mitral Valve The mitral valve is normal in structure. Mild mitral regurgitation. No evidence of mitral valve stenosis. Tricuspid Valve The tricuspid valve is normal in structure. There is no tricuspid valve regurgitation noted.. Pulmonic Valve Pulmonic valve is not visualized. Great Vessels The ascending aorta is mildly dilated. Pericardium There is no pericardial effusion. <Conclusion> Mild concentric left ventricular hypertrophy. LVEF is >70%. Left atrium is moderately dilated. Moderate aortic regurgitation. Mild mitral regurgitation. <ELECTRONICALLY SIGNED> By: Polo Sanford MD, FACC 04/14/17 1515 1515 Polo Sanford MD, FACC /INF
--- NOTE | 2017-04-14 16:12 | NUR ---
ASSESSMENT COMPLETED REFER TO COMPUTER CHARTING. INTERIOR DESIGN COORDINATOR TRACKING SR. PATIENT RESTING IN BED REPORTING NO PAIN, NUASEA OR SHORTNESS OF BREATH. BED IN LOW AND LOCKED POSITION. CALL LIGHT WITHIN REACH. IV SALINE LOCKED. ON ROOM AIR. WILL CONTINUE TO MONITOR AT THIS TIME.
--- NOTE | 2017-04-15 16:38 | CON ---
[address] [address] CONSULTATION Name: YUE ANDRADE Room: [address] [facility].#: [id number] Admission: 04/11/17 Attend Phys: Yifan Carbajal MD Discharge: 04/14/17 Date of : 69 Report #: [id number] THIS REPORT FOR: //name// CC: Yifan Carbajal [facility] physician/PCP DATE OF SERVICE: 04/14/2017 HISTORY OF PRESENT ILLNESS: The patient is a 51-year-old single white female who I was asked to see in the hospital after she complained of being short of breath. The patient states that she actually had rheumatic fever as a child. She has had multiple hospitalizations here at [facility]. Back in 2007, she had pyelonephritis. She was seen here in 2013 with kidney stones and had a stent placed. She was here in 2014 with pelvic inflammatory disease. She was here in 2016 with bronchitis. She did have a history of drug abuse, using methamphetamines. She apparently has a history of immunodeficiency and receives subq injections at [facility] every week. She came to the Emergency Room 3 weeks ago with a cough. She was evaluated and sent home. She then returned to the Emergency Room 3 days ago with increasing shortness of breath and not feeling well. She was very weak. Unfortunately, she continues to smoke and had a cough. She noticed some flutter in her chest, but no syncope. She did note some tightness in her chest on the right side. She underwent an echocardiogram 2 days ago that was read by Dr. Cole. Results showed left ventricular hypertrophy, left atrial enlargement, moderate to severe aortic insufficiency. I was asked to see her for further evaluation and treatment. PAST MEDICAL HISTORY: Significant for cholecystectomy, knee surgery, colon polyp removal, multiple stents for kidney stones. She has a history of hypertension. No history of diabetes. MEDICATIONS: On admission include albuterol inhaler, Symbicort, clonazepam, lisinopril, Singulair, Protonix, Paxil, ranitidine, Topamax for migraines. ALLERGIES: She has intolerance to PENICILLIN, MORPHINE, AND FLOMAX. FAMILY HISTORY: Her father had a stroke. SOCIAL HISTORY: She is single, never been . She actually has 4 children. Currently lives with her mother. 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. She is not working at this time. She does smoke half pack of cigarettes a day. No alcohol abuse. She denies illicit drug use at this time. REVIEW OF SYSTEMS: She has had a history of Crum's palsy. She has had a peptic ulcer in the past. She has had kidney stones. She has this diagnosis [place] [address] CONSULTATION Name: RAYMONDYUE LALA Room: [address] IN [facility].#: [id number] Admission: 04/11/17 Attend Phys: Yifan Carbajal MD Discharge: 04/14/17 Date of : 69 Report #: [id number] PHYSICAL EXAMINATION: GENERAL: Revealed a middle-aged female, lying in bed. She appeared in no distress. VITAL SIGNS: She had blood pressure of 120/70, pulse 70. She is afebrile. HEENT: She was anicteric, conjunctiva pink. Mucous membranes moist. NECK: Veins do not appear distended. No carotid bruits. CHEST: Coarse breath sounds. HEART: Regular rate and rhythm, grade 3 diastolic blowing murmur along the right sternal border. ABDOMEN: Soft. EXTREMITIES: Had no edema. Posterior tibial pulse 2+ bilaterally. SKIN: Warm, dry. NEUROLOGIC: Nonfocal. DIAGNOSTIC STUDIES: Her ECG on admission showed a sinus rhythm with nonspecific ST and T-wave change. Her workup so far included sodium 144, potassium 3.4, creatinine 1.1. Her liver function studies appeared normal. TSH 0.298, T4 0.78. White blood cell count 12.5, hemoglobin 10.8. Her x-rays since her admission, she had portable chest x-ray that showed normal heart size and clear lung matt. CT scan of the chest without contrast showed no acute abnormality. CT scan of the abdomen without contrast showed kidney stones, otherwise unremarkable. IMPRESSION AND RECOMMENDATIONS: 1. Aortic insufficiency. Recommend SONY to evaluate the valve. At this time, I would treat with afterload reducers. The patient's left ventricle does not appear to be dilated at this time, with normal ejection fraction. If patient continues to be symptomatic, would need to consider aortic valve replacement. 2. History of immunodeficiency. 3. Bronchitis. 4. Tobacco abuse. 5. History of manic depressive illness. 6. History of kidney stones. <ELECTRONICALLY SIGNED> By: Polo Sanford MD, FACC 04/15/17 1638 1000 [id number] Sanford MD, FACC /nt
== END 2017-04-14 18:11 | disposition home or self-care (01) | DRG 872 ==
LOC: M.ERS 13:09 → M.2W 18:28 → M.TBA-ER 18:28 → M.2W 20:44
PROVIDERS: Internal Medicine; Personal Emergency Response Attendant; Physician Assistant; ADMIT Internal Medicine
PROC: B24BZZ4 Ultrasonography of Heart with Aorta, Transesophageal (ICD-10-PCS; principal; 2017-04-14)
DX: A41.9 Sepsis, unspecified organism (principal); J44.1 Chronic obstructive pulmonary disease with (acute) exacerbation; D83.9 Common variable immunodeficiency, unspecified; J44.0 Chronic obstructive pulmonary disease with (acute) lower respiratory infection; F32.9 Major depressive disorder, single episode, unspecified; I10 Essential (primary) hypertension; F41.9 Anxiety disorder, unspecified; F17.210 Nicotine dependence, cigarettes, uncomplicated; K21.9 Gastro-esophageal reflux disease without esophagitis; I35.1 Nonrheumatic aortic (valve) insufficiency; J20.9 Acute bronchitis, unspecified; Z87.442 Personal history of urinary calculi; Z90.49 Acquired absence of other specified parts of digestive tract; Z86.73 Personal history of transient ischemic attack (TIA), and cerebral infarction without residual deficits; Z79.899 Other long term (current) drug therapy; Z88.8 Allergy status to other drugs, medicaments and biological substances; Z88.6 Allergy status to analgesic agent; Z88.1 Allergy status to other antibiotic agents; Z91.040 Latex allergy status; Z88.0 Allergy status to penicillin

== ENCOUNTER 2017-05-03 15:45 | Emergency (ER) | payer OTHER, MEDICAID ==
[~2017-05-03] VITALS: Ht 175.3 cm; Wt 83.9 kg
[~2017-05-03 15:45] MED LIST changes: +LOPERAMIDE 2 MG2 M1 PO; +TOPAMAX 25 MG T25 M1 PO
[2017-05-03 17:40] VITALS: BP 132/86
== END 2017-05-03 17:41 | disposition left against medical advice (07) ==
LOC: M.ERS 15:45
DX: R51 Headache (principal); F41.9 Anxiety disorder, unspecified; I73.00 Raynaud's syndrome without gangrene; F32.9 Major depressive disorder, single episode, unspecified; J45.909 Unspecified asthma, uncomplicated; I10 Essential (primary) hypertension; M32.9 Systemic lupus erythematosus, unspecified; L40.9 Psoriasis, unspecified; F17.210 Nicotine dependence, cigarettes, uncomplicated; Z90.49 Acquired absence of other specified parts of digestive tract; Z86.73 Personal history of transient ischemic attack (TIA), and cerebral infarction without residual deficits; Z86.14 Personal history of Methicillin resistant Staphylococcus aureus infection; Z88.5 Allergy status to narcotic agent; Z88.0 Allergy status to penicillin; Z88.6 Allergy status to analgesic agent; Z88.8 Allergy status to other drugs, medicaments and biological substances; Z91.040 Latex allergy status

== ENCOUNTER 2017-05-09 11:42 | Emergency (ER) | payer OTHER, MEDICAID ==
[~2017-05-09] VITALS: Ht 175.3 cm; Wt 83.9 kg
[2017-05-09 12:48] LABS: BE 0.5 mmol/L (-2 to +3); HCO3 22.3 mmol/L (22.0-26.0); PO2 68.6 mmHg (75.0-100.0); pH 7.503 (7.340-7.450)
[2017-05-09 13:00] LABS: INFLUENZA A ANTIGEN None Detected (None Detect); INFLUENZA B ANTIGEN None Detected (None Detect)
[2017-05-09] MEDS ORDERED: DOXYCYCLINE 10100 MG PO (14:26)
[2017-05-09] MEDS ORDERED: PROAIR HFA8.5 GM INH (14:26)
[2017-05-09] MEDS ORDERED: TESSALON PERLE100 MG PO (14:26)
[2017-05-09 14:30] VITALS: BP 146/84
[2017-05-09] MEDS ORDERED: PROMETH-CODEIN 65 ML PO (14:32)
--- NOTE | 2017-05-10 17:18 | EKG ---
[place] [address] ELECTROCARDIOGRAM REPORT Name: YUE ANDRADE Room: [facility]#: [id number] Admission: 05/09/17 Attend Phys: Discharge: 05/09/17 Date of : 69 Report #: [id number] THIS REPORT FOR: //name// [facility] ED Test Date: 2017-05-09 Test Time: 11:54:53 Pat Name: YUE ANDRADE Department: Room: Gender: F Gas Operation Manager: MS : 1965 Requested By: Tatyana Lazcano Order Number: [id number] Loco MD: Polo Sanford Measurements Intervals [place] Rate: 101 P: 39 MA: 126 QRS: -3 QRSD: 97 T: 51 QT: 404 QTc: 524 Interpretive Statements Sinus tachycardia poor r wave progression Prolonged QT interval Baseline wander in lead(s) I,III,aVL,aVF,V1,V2,V3,V4,V5,V6 Compared to ECG 04/11/2017 13:14:52 Prolonged QT interval now present ST (T wave) deviation still present Electronically Signed On 05-10-2017 17:18:33 WORKFORCE PLANNER by Polo Sanford [email or web address] <ELECTRONICALLY SIGNED> By: Polo Sanford MD, FACC 05/10/17 1718 1154 1154 Polo Sanford MD, FAC /EPI
== END 2017-05-09 14:32 | disposition home or self-care (01) ==
LOC: M.ERS 11:42
PROVIDERS: Physician Assistant
DX: J20.9 Acute bronchitis, unspecified (principal); I73.00 Raynaud's syndrome without gangrene; F32.9 Major depressive disorder, single episode, unspecified; I10 Essential (primary) hypertension; J44.9 Chronic obstructive pulmonary disease, unspecified; F41.9 Anxiety disorder, unspecified; M32.9 Systemic lupus erythematosus, unspecified; L40.9 Psoriasis, unspecified; F17.210 Nicotine dependence, cigarettes, uncomplicated; Z88.5 Allergy status to narcotic agent; Z90.49 Acquired absence of other specified parts of digestive tract; Z86.73 Personal history of transient ischemic attack (TIA), and cerebral infarction without residual deficits; Z86.14 Personal history of Methicillin resistant Staphylococcus aureus infection; Z88.0 Allergy status to penicillin; Z88.6 Allergy status to analgesic agent; Z88.1 Allergy status to other antibiotic agents; Z91.040 Latex allergy status; Z88.8 Allergy status to other drugs, medicaments and biological substances

== ENCOUNTER → 2017-05-14 | Outpatient (CLI) | payer OTHER, MEDICAID ==
[~2017-05-14] MED LIST changes: +ADDERALL 7.5 M7.5 MG; +ADVAIR HFA 230M12 GM; +ALLERGY RELIEF10 M5; +ASTEPRO205.5 MCG/ NASAL; +COLESTID1 GM; +HIZENTRA1 GM/5 ML; +LAMICTAL100 MG; +LOPRESSOR50; +PROMETH-CODEIN 65 ML PO; +SINGULAIR 10 MG10 M1; +TRICOR145 MG; +TUSSIONEX PENN115 ML PO; +VENLAFAXIN37.5 MG/1; +VITAMIN D5000 UNIT
[2017-05-14 10:42] LABS: CHOLESTEROL 178 mg/dL (<200); HDL CHOLESTEROL 31 mg/dL (>40); TC:HDL 5.7 Ratio (Not establshd)
[2017-05-14 10:50] LABS: SERUM ASSESSMENT Clear
[2017-05-14 10:51] LABS: LDL CHOLESTEROL ND mg/dL (<100); TRIGLYCERIDE 515 mg/dL (<150); VLDL 103 mg/dL (<40)
[2017-05-14 23:07] LABS: GLYCOHEMOGLOBIN (HGB A1C) 5.1 % (4.8-5.6)
== END ==
LOC: M.LAB 09:55
DX: R69 Illness, unspecified (principal)

== ENCOUNTER 2017-10-20 05:56 | Emergency (ER) | payer OTHER, MEDICAID ==
[~2017-10-20] VITALS: Ht 175.3 cm; Wt 73.9 kg
[~2017-10-20 05:56] MED LIST changes: -ADDERALL 7.5 M7.5 MG; -ADVAIR HFA 230M12 GM; -ALLERGY RELIEF10 M5; -ASTEPRO205.5 MCG/ NASAL; -COLESTID1 GM; -HIZENTRA1 GM/5 ML; -LAMICTAL100 MG; -LOPRESSOR50; -SINGULAIR 10 MG10 M1; -TRICOR145 MG; -TUSSIONEX PENN115 ML PO; -VENLAFAXIN37.5 MG/1; -VITAMIN D5000 UNIT
[2017-10-20] MEDS ORDERED: ALLERGY RELIEF10 M5 (06:10)
[2017-10-20] MEDS ORDERED: SINGULAIR 10 MG10 M1 (06:11)
[2017-10-20] MEDS ORDERED: TRICOR145 MG (06:12)
[2017-10-20] MEDS ORDERED: HIZENTRA1 GM/5 ML (06:13)
[2017-10-20] MEDS ORDERED: VENLAFAXIN37.5 MG/1 (06:14)
[2017-10-20] MEDS ORDERED: LOPRESSOR50 (06:15)
[2017-10-20] MEDS ORDERED: LAMICTAL100 MG (06:16)
[2017-10-20] MEDS ORDERED: VITAMIN D5000 UNIT (06:17)
[2017-10-20] MEDS ORDERED: ADDERALL 7.5 M7.5 MG (06:17)
[2017-10-20] MEDS ORDERED: ADVAIR HFA 230M12 GM (06:19)
[2017-10-20] MEDS ORDERED: COLESTID1 GM (06:19)
[2017-10-20] MEDS ORDERED: ASTEPRO205.5 MCG/ NASAL (06:21)
[2017-10-20 06:40] LABS: ABSOLUTE EOSINOPHILS 0.2 thou/uL (0.0-0.7); ABSOLUTE LYMPHOCYTES 1.6 thou/uL (0.8-5.3); ABSOLUTE MONOCYTES 0.6 thou/uL (0.0-1.2); ABSOLUTE NEUTROPHILS 6.7 thou/uL (1.6-8.1); BASOPHILS 0.2 %; EOSINOPHILS 2.3 %; HEMATOCRIT 37.2 % (37.0-47.0); HEMOGLOBIN 12.6 gm/dL (12.0-15.0); LYMPHOCYTES 17.3 %; MCHC 33.9 g/dL (28.0-37.0); MCV 91.6 fL (80.0-100.0); MPV 8.4 fl. (7.2-11.1); NUCLEATED RBCS 0 /100WBC; PLATELET COUNT* 233 thou/uL (150-400); POLYS 73.2 %; RBC 4.06 mil/uL (4.20-5.00); RDW-CV 12.8 % (10.5-14.5); WBC 9.2 thou/uL (4.0-11.0)
[2017-10-20 06:51] LABS: CALCIUM 9.9 mg/dL (8.5-10.1); CREATININE 1.3 mg/dL (0.6-1.3); POTASSIUM 3.2 mmol/L (3.5-5.1)
[2017-10-20 07:01] LABS: URINE BILIRUBIN NEGATIVE (Negative); URINE BLOOD NEGATIVE (Negative); URINE CLARITY CLEAR; URINE COLOR YELLOW; URINE GLUCOSE-RANDOM NEGATIVE (Negative); URINE KETONES NEGATIVE (Negative); URINE LEUKOCYTES-REFLEX TRACE (Negative); URINE NITRITE-REFLEX NEGATIVE (Negative); URINE PROTEIN NEGATIVE (Negative); URINE UROBILINOGEN 0.2 E.U./dl (0.2-1.0)
[2017-10-20 07:08] LABS: AMP/METHAMP Negative (Negative); BARBITURATES Negative (Negative); BENZODIAZEPINES Negative (Negative); COCAINE Negative (Negative); METHADONE Negative (Negative); OPIATES Negative (Negative); PCP Negative (Negative); THC Negative (Negative)
[2017-10-20 07:40] VITALS: BP 123/74
== END 2017-10-20 07:41 | disposition home or self-care (01) ==
LOC: M.ERS 05:56
PROVIDERS: Emergency Medicine
DX: J44.1 Chronic obstructive pulmonary disease with (acute) exacerbation (principal); F32.9 Major depressive disorder, single episode, unspecified; I10 Essential (primary) hypertension; F41.9 Anxiety disorder, unspecified; M32.9 Systemic lupus erythematosus, unspecified; Z87.01 Personal history of pneumonia (recurrent); Z90.49 Acquired absence of other specified parts of digestive tract; F17.210 Nicotine dependence, cigarettes, uncomplicated; Z88.0 Allergy status to penicillin; Z88.5 Allergy status to narcotic agent; Z88.1 Allergy status to other antibiotic agents; Z91.040 Latex allergy status; Z88.8 Allergy status to other drugs, medicaments and biological substances

== ENCOUNTER 2017-10-22 03:31 | Emergency (ER) | payer OTHER, MEDICAID ==
[~2017-10-22] VITALS: Ht 175.3 cm; Wt 73.9 kg
[~2017-10-22 03:31] MED LIST changes: +ADDERALL 7.5 M7.5 MG; +ADVAIR HFA 230M12 GM; +ALLERGY RELIEF10 M5; +ASTEPRO205.5 MCG/ NASAL; +COLESTID1 GM; +HIZENTRA1 GM/5 ML; +LAMICTAL100 MG; +LOPRESSOR50; +SINGULAIR 10 MG10 M1; +TRICOR145 MG; +VENLAFAXIN37.5 MG/1; +VITAMIN D5000 UNIT
[2017-10-22 04:16] LABS: ABSOLUTE LYMPHOCYTES 1.4 thou/uL (0.8-5.3); ABSOLUTE MONOCYTES 0.6 thou/uL (0.0-1.2); ABSOLUTE NEUTROPHILS 10.7 thou/uL (1.6-8.1); BASOPHILS 0.3 %; EOSINOPHILS 0.1 %; HEMATOCRIT 34.8 % (37.0-47.0); HEMOGLOBIN 11.7 gm/dL (12.0-15.0); LYMPHOCYTES 10.7 %; MCH 31.2 pg (26.0-34.0); MCHC 33.7 g/dL (28.0-37.0); MCV 92.5 fL (80.0-100.0); MONOCYTES 4.5 %; MPV 8.5 fl. (7.2-11.1); NUCLEATED RBCS 0 /100WBC; PLATELET COUNT* 266 thou/uL (150-400); POLYS 84.4 %; RBC 3.77 mil/uL (4.20-5.00); WBC 12.7 thou/uL (4.0-11.0)
[2017-10-22 04:39] LABS: CALCIUM 10.1 mg/dL (8.5-10.1); CREATININE 1.2 mg/dL (0.6-1.3); POTASSIUM 3.8 mmol/L (3.5-5.1)
[2017-10-22 05:15] LABS: AMP/METHAMP POSITIVE (Negative); BARBITURATES Negative (Negative); BENZODIAZEPINES Negative (Negative); METHADONE Negative (Negative); OPIATES Negative (Negative); THC Negative (Negative)
[2017-10-22 05:29] LABS: COCAINE Negative (Negative); PCP Negative (Negative)
[2017-10-22] MEDS ORDERED: TUSSIONEX PENN115 ML PO (06:05)
[2017-10-22] MEDS ORDERED: DOXYCYCLINE 10100 MG PO (06:05)
[2017-10-22 06:14] VITALS: BP 156/72
== END 2017-10-22 06:15 | disposition home or self-care (01) ==
LOC: M.ERS 03:31
PROVIDERS: Emergency Medicine
DX: J44.1 Chronic obstructive pulmonary disease with (acute) exacerbation (principal); F32.9 Major depressive disorder, single episode, unspecified; I10 Essential (primary) hypertension; K50.90 Crohn's disease, unspecified, without complications; F41.9 Anxiety disorder, unspecified; L40.9 Psoriasis, unspecified; M32.9 Systemic lupus erythematosus, unspecified; F17.210 Nicotine dependence, cigarettes, uncomplicated; Z90.49 Acquired absence of other specified parts of digestive tract; Z86.73 Personal history of transient ischemic attack (TIA), and cerebral infarction without residual deficits; Z86.14 Personal history of Methicillin resistant Staphylococcus aureus infection; Z88.5 Allergy status to narcotic agent; Z88.0 Allergy status to penicillin; Z88.6 Allergy status to analgesic agent; Z88.8 Allergy status to other drugs, medicaments and biological substances; Z91.040 Latex allergy status; Z86.718 Personal history of other venous thrombosis and embolism

== ENCOUNTER 2018-11-06 13:27 | Emergency (ER) | payer OTHER, MEDICAID ==
[~2018-11-06] VITALS: Ht 175.3 cm; Wt 77.1 kg
[~2018-11-06 13:27] MED LIST changes: +TUSSIONEX PENN115 ML PO
[2018-11-06] MEDS ORDERED: HYDROCODON-ACE1 EAC7 PO (15:49)
[2018-11-06 16:21] VITALS: BP 148/78
== END 2018-11-06 16:22 | disposition home or self-care (01) ==
LOC: M.ERS 13:27
DX: G43.909 Migraine, unspecified, not intractable, without status migrainosus (principal); F17.210 Nicotine dependence, cigarettes, uncomplicated; R11.2 Nausea with vomiting, unspecified; F32.9 Major depressive disorder, single episode, unspecified; I10 Essential (primary) hypertension; J44.9 Chronic obstructive pulmonary disease, unspecified; F41.9 Anxiety disorder, unspecified; L40.9 Psoriasis, unspecified; E11.9 Type 2 diabetes mellitus without complications; Z86.73 Personal history of transient ischemic attack (TIA), and cerebral infarction without residual deficits; Z79.899 Other long term (current) drug therapy; Z88.0 Allergy status to penicillin; Z88.1 Allergy status to other antibiotic agents; Z88.5 Allergy status to narcotic agent; Z91.040 Latex allergy status

== ENCOUNTER 2018-11-27 22:04 | Emergency (ER) | payer OTHER, MEDICAID ==
[~2018-11-27] VITALS: Ht 175.3 cm; Wt 77.1 kg
[2018-11-27] MEDS ORDERED: CYMBALTA30 MG PO (22:23)
[2018-11-28 00:04] LABS: ABSOLUTE EOSINOPHILS 0.1 thou/uL (0.0-0.7); ABSOLUTE MONOCYTES 0.6 thou/uL (0.0-1.2); ABSOLUTE NEUTROPHILS 2.9 thou/uL (1.6-8.1); BASOPHILS 0.3 %; EOSINOPHILS 2.3 %; HEMATOCRIT 38.8 % (37.0-47.0); HEMOGLOBIN 13.4 gm/dL (12.0-15.0); LYMPHOCYTES 35.7 %; MCH 32.3 pg (26.0-34.0); MCHC 34.6 g/dL (28.0-37.0); MCV 93.2 fL (80.0-100.0); MONOCYTES 11.4 %; MPV 8.8 fl. (7.2-11.1); NUCLEATED RBCS 0 /100WBC; PLATELET COUNT* 233 thou/uL (150-400); POLYS 50.3 %; RBC 4.16 mil/uL (4.20-5.00); RDW-CV 12.9 % (10.5-14.5); WBC 5.7 thou/uL (4.0-11.0)
[2018-11-28 00:06] LABS: ANION GAP 11 mmol/L (7-16); BUN 15 mg/dL (7-18); CALCIUM 9.5 mg/dL (8.5-10.1); CHLORIDE 102 mmol/L (98-107); CO2 25 mmol/L (21-32); GLUCOSE 110 mg/dL (70-99); POTASSIUM 3.4 mmol/L (3.5-5.1); SODIUM 138 mmol/L (136-145)
[2018-11-28 00:13] LABS: APTT 22.8 Seconds (25.0-31.3)
[2018-11-28 00:15] LABS: ALBUMIN 3.6 g/dL (3.4-5.0); ALKALINE PHOSPHATASE 101 U/L (46-116); SGOT 16 U/L (15-37); SGPT 18 U/L (30-65); TOTAL BILIRUBIN 0.3 mg/dL (<0.1-1.0); TOTAL PROTEIN 7.6 g/dL (6.4-8.2); TROPONIN-I LEVEL <0.06 ng/mL (<0.06)
[2018-11-28 00:29] LABS: URINE BILIRUBIN NEGATIVE (Negative); URINE BLOOD TRACE (Negative); URINE CLARITY CLEAR; URINE COLOR STRAW; URINE GLUCOSE-RANDOM NEGATIVE (Negative); URINE KETONES NEGATIVE (Negative); URINE LEUKOCYTES-REFLEX NEGATIVE (Negative); URINE NITRITE-REFLEX NEGATIVE (Negative); URINE PROTEIN NEGATIVE (Negative); URINE SPECIFIC GRAVITY <= 1.005 (1.005-1.030); URINE UROBILINOGEN 0.2 E.U./dl (0.2-1.0)
[2018-11-28 00:44] LABS: AMP/METHAMP POSITIVE (Negative); BARBITURATES Negative (Negative); BENZODIAZEPINES Negative (Negative); COCAINE Negative (Negative); METHADONE Negative (Negative); OPIATES Negative (Negative); PCP Negative (Negative); THC Negative (Negative)
[2018-11-28 02:35] VITALS: BP 160/91
--- NOTE | 2018-11-28 12:02 | EKG ---
[place] [address] ELECTROCARDIOGRAM REPORT Name: YUE ANDRADE Room: [facility]#: [id number] Admission: 11/27/18 Attend Phys: Discharge: 11/28/18 Date of : 69 Report #: [id number] THIS REPORT FOR: //name// [facility] ED Test Date: 2018-11-27 Test Time: 22:09:24 Pat Name: YUE ANDRADE Department: Room: Gender: F Train Clerk: JUAN : 1965 Requested By: Tatyana Joya Order Number: [id number] MD: Barrie Christensen Measurements Intervals [place] Rate: 86 P: 23 NM: 153 QRS: -11 QRSD: 153 T: 128 QT: 434 QTc: 519 Interpretive Statements Sinus rhythm Left bundle branch block Compared to ECG 05/09/2017 11:54:53 Left bundle-branch block now present Sinus tachycardia no longer present Poor R-wave progression no longer present Prolonged QT interval no longer present Electronically Signed On 11-28-2018 12:02:06 CDT by Barrie Christensen [email or web address] <ELECTRONICALLY SIGNED> By: Barrie Christensen MD, [facility] 11/28/18 1202 08 08 Barrie Christensen MD, [facility] /EPI
== END 2018-11-28 02:15 | disposition home or self-care (01) ==
LOC: M.ERS 22:04
PROVIDERS: Personal Emergency Response Attendant
DX: R07.89 Other chest pain (principal); F41.9 Anxiety disorder, unspecified; M32.9 Systemic lupus erythematosus, unspecified; L40.9 Psoriasis, unspecified; F32.9 Major depressive disorder, single episode, unspecified; J44.9 Chronic obstructive pulmonary disease, unspecified; K50.90 Crohn's disease, unspecified, without complications; F17.210 Nicotine dependence, cigarettes, uncomplicated; Z88.1 Allergy status to other antibiotic agents; Z90.49 Acquired absence of other specified parts of digestive tract; Z86.73 Personal history of transient ischemic attack (TIA), and cerebral infarction without residual deficits; Z86.718 Personal history of other venous thrombosis and embolism; Z86.14 Personal history of Methicillin resistant Staphylococcus aureus infection; Z87.01 Personal history of pneumonia (recurrent); Z79.899 Other long term (current) drug therapy; Z88.5 Allergy status to narcotic agent; Z88.0 Allergy status to penicillin; Z91.040 Latex allergy status; Z88.8 Allergy status to other drugs, medicaments and biological substances; Z88.6 Allergy status to analgesic agent

== ENCOUNTER 2019-05-28 19:05 | Emergency (ER) | payer OTHER, MEDICAID ==
[~2019-05-28] VITALS: Ht 175.3 cm; Wt 79.4 kg
[~2019-05-28 19:05] MED LIST changes: +CYMBALTA30 MG PO
[2019-05-28 19:44] LABS: URINE BILIRUBIN NEGATIVE (Negative); URINE BLOOD NEGATIVE (Negative); URINE CLARITY CLEAR; URINE COLOR YELLOW; URINE GLUCOSE-RANDOM NEGATIVE (Negative); URINE KETONES NEGATIVE (Negative); URINE LEUKOCYTES-REFLEX NEGATIVE (Negative); URINE NITRITE-REFLEX NEGATIVE (Negative); URINE PROTEIN NEGATIVE (Negative); URINE UROBILINOGEN 0.2 E.U./dl (0.2-1.0)
[2019-05-28 20:02] LABS: ABSOLUTE EOSINOPHILS 0.1 thou/uL (0.0-0.7); ABSOLUTE LYMPHOCYTES 1.4 thou/uL (0.8-5.3); ABSOLUTE MONOCYTES 0.5 thou/uL (0.0-1.2); BASOPHILS 0.2 %; HEMATOCRIT 38.1 % (37.0-47.0); HEMOGLOBIN 13.6 gm/dL (12.0-15.0); LYMPHOCYTES 17.5 %; MCH 32.8 pg (26.0-34.0); MCHC 35.7 g/dL (28.0-37.0); MCV 91.6 fL (80.0-100.0); MONOCYTES 6.2 %; MPV 8.5 fl. (7.2-11.1); NUCLEATED RBCS 0 /100WBC; PLATELET COUNT* 236 thou/uL (150-400); POLYS 75.1 %; RBC 4.15 mil/uL (4.20-5.00); RDW-CV 13.2 % (10.5-14.5)
[2019-05-28 20:04] LABS: AMP/METHAMP POSITIVE (Negative); BARBITURATES POSITIVE (Negative); BENZODIAZEPINES Negative (Negative); COCAINE Negative (Negative); METHADONE Negative (Negative); OPIATES Negative (Negative); PCP Negative (Negative); THC Negative (Negative)
[2019-05-28 20:10] LABS: CALCIUM 8.7 mg/dL (8.5-10.1); CREATININE 1.1 mg/dL (0.6-1.3); POTASSIUM 3.5 mmol/L (3.5-5.1); PROTIME 10.2 Seconds (9.20-11.50)
[2019-05-28 20:19] LABS: INFLUENZA A ANTIGEN Negative (Negative); INFLUENZA B ANTIGEN Negative (Negative)
[2019-05-28 20:21] LABS: ALBUMIN 3.6 g/dL (3.4-5.0); TOTAL BILIRUBIN 0.3 mg/dL (<0.1-1.0); TOTAL PROTEIN 7.6 g/dL (6.4-8.2)
[2019-05-28] MEDS ORDERED: ADDERALL (20:45)
[2019-05-28] MEDS ORDERED: BUTALB-APAP-CA1 EACH (20:45)
[2019-05-29] MEDS ORDERED: DOXYCYCLINE 10100 MG PO (03:12)
[2019-05-29 03:26] VITALS: BP 106/54
== END 2019-05-29 03:26 | disposition home or self-care (01) ==
LOC: M.ERS 19:05
PROVIDERS: Emergency Medicine
DX: B34.9 Viral infection, unspecified (principal); R51 Headache; M54.5 Low back pain; J34.89 Other specified disorders of nose and nasal sinuses; F17.210 Nicotine dependence, cigarettes, uncomplicated; Z88.0 Allergy status to penicillin; Z88.1 Allergy status to other antibiotic agents; Z88.5 Allergy status to narcotic agent; Z88.8 Allergy status to other drugs, medicaments and biological substances; Z91.040 Latex allergy status

== ENCOUNTER 2019-08-15 15:02 | Emergency (ER) | payer OTHER, MEDICAID ==
[~2019-08-15] VITALS: Ht 177.8 cm; Wt 70.3 kg
[~2019-08-15 15:02] MED LIST changes: +ADDERALL; +BUTALB-APAP-CA1 EACH
[2019-08-15 15:51] VITALS: BP 137/89
== END 2019-08-15 15:51 | disposition home or self-care (01) ==
LOC: M.ERS 15:02
DX: S01.312D Laceration without foreign body of left ear, subsequent encounter (principal); J44.9 Chronic obstructive pulmonary disease, unspecified; I10 Essential (primary) hypertension; M32.9 Systemic lupus erythematosus, unspecified; L40.9 Psoriasis, unspecified; F17.210 Nicotine dependence, cigarettes, uncomplicated; Z88.5 Allergy status to narcotic agent; Z88.0 Allergy status to penicillin; Z88.6 Allergy status to analgesic agent; Z91.041 Radiographic dye allergy status; Z90.49 Acquired absence of other specified parts of digestive tract; Z86.73 Personal history of transient ischemic attack (TIA), and cerebral infarction without residual deficits; Z86.14 Personal history of Methicillin resistant Staphylococcus aureus infection; Z88.8 Allergy status to other drugs, medicaments and biological substances; X58.XXXD Exposure to other specified factors, subsequent encounter

== ENCOUNTER 2019-09-03 20:47 | Emergency (ER) | payer OTHER, MEDICAID ==
[~2019-09-03] VITALS: Ht 175.3 cm; Wt 75.8 kg
[2019-09-03] MEDS ORDERED: NORVASC 2.5 MG2.5 M1 PO (21:08)
[2019-09-03] MEDS ORDERED: PAIN RELIEF325 MG PO (21:08)
[2019-09-03] MEDS ORDERED: ASA81BEC PO (21:08)
[2019-09-03] MEDS ORDERED: AZELASTINE205.5 MCG/ NARES (21:09)
[2019-09-03] MEDS ORDERED: ATORVASTATIN CA80 MG PO (21:09)
[2019-09-03] MEDS ORDERED: FLEXERIL PO (21:10)
[2019-09-03] MEDS ORDERED: TESSALON PERLE100 M1 PO (21:10)
[2019-09-03] MEDS ORDERED: VITAMIN D21250 MCG PO (21:11)
[2019-09-03] MEDS ORDERED: HYDROCHLOROTHIA25 M1 PO (21:12)
[2019-09-03] MEDS ORDERED: ATROVENT HFA14 GM NASAL (21:13)
[2019-09-03] MEDS ORDERED: LOPERAMIDE2 MG PO (21:14)
[2019-09-03] MEDS ORDERED: NAPROSYN500 M1 PO (21:15)
[2019-09-03] MEDS ORDERED: SINGULAIR 10 MG10 M1 PO (21:15)
[2019-09-03] MEDS ORDERED: NITROSTAT0.4 M1 SUBLING (21:16)
[2019-09-03] MEDS ORDERED: PHENERGAN 25 MG25 M1 PO (21:17)
[2019-09-03] MEDS ORDERED: SYMBICORT160 MCG/4. INH (21:17)
[2019-09-03] MEDS ORDERED: POTASSIUM20 PO (21:17)
[2019-09-03] MEDS ORDERED: UBRELVY100 MG PO (21:18)
[2019-09-03 22:32] LABS: URINE BILIRUBIN NEGATIVE (Negative); URINE BLOOD NEGATIVE (Negative); URINE CLARITY CLEAR; URINE COLOR YELLOW; URINE GLUCOSE-RANDOM NEGATIVE (Negative); URINE KETONES NEGATIVE (Negative); URINE LEUKOCYTES-REFLEX 1+ (Negative); URINE NITRITE-REFLEX NEGATIVE (Negative); URINE PROTEIN NEGATIVE (Negative); URINE SPECIFIC GRAVITY 1.015 (1.005-1.030); URINE UROBILINOGEN 0.2 E.U./dl (0.2-1.0)
[2019-09-03 22:39] LABS: AMP/METHAMP POSITIVE (Negative); BARBITURATES POSITIVE (Negative); BENZODIAZEPINES Negative (Negative); COCAINE Negative (Negative); METHADONE Negative (Negative); OPIATES Negative (Negative); PCP Negative (Negative); THC Negative (Negative)
[2019-09-03 22:47] LABS: CALCIUM 8.8 mg/dL (8.5-10.1); CREATININE 1.2 mg/dL (0.6-1.3); POTASSIUM 3.3 mmol/L (3.5-5.1)
[2019-09-03 22:51] LABS: BACTERIA-REFLEX >30 Many /HPF (None Seen); MUCUS 0-3 Light strn/LPF (None Seen); SQUAMOUS 4-10 Moderate /LPF (0-3); TRANSITIONAL EPITHEL CELL 0-3 Few /LPF (None Seen); URINE RBC 3-10 Few /HPF (0-2)
[2019-09-03 22:51] LABS: ALBUMIN 3.6 g/dL (3.4-5.0); TOTAL BILIRUBIN 0.3 mg/dL (<0.1-1.0); TOTAL PROTEIN 6.8 g/dL (6.4-8.2)
[2019-09-03 22:52] LABS: CRYSTALS None Seen /LPF (None Seen); FINE GRANULAR CASTS 0-3 Few /LPF (None Seen); HYALINE CASTS 0-3 Few /LPF (None Seen)
[2019-09-04 00:54] LABS: ABSOLUTE EOSINOPHILS 0.1 thou/uL (0.0-0.7); ABSOLUTE LYMPHOCYTES 1.6 thou/uL (0.8-5.3); ABSOLUTE MONOCYTES 0.5 thou/uL (0.0-1.2); ABSOLUTE NEUTROPHILS 4.5 thou/uL (1.6-8.1); BASOPHILS 0.4 %; EOSINOPHILS 2.2 %; HEMATOCRIT 37.2 % (37.0-47.0); HEMOGLOBIN 13.1 gm/dL (12.0-15.0); LYMPHOCYTES 24.3 %; MCHC 35.3 g/dL (28.0-37.0); MCV 93.5 fL (80.0-100.0); NUCLEATED RBCS 0 /100WBC; PLATELET COUNT* 214 thou/uL (150-400); POLYS 66.1 %; RBC 3.98 mil/uL (4.20-5.00); RDW-CV 13.8 % (10.5-14.5); WBC 6.8 thou/uL (4.0-11.0)
[2019-09-04] MEDS ORDERED: MACROBID 100 M100 M1 PO (02:25)
[2019-09-04] MEDS ORDERED: PERCOCET 7.5-31 EAC1 PO (02:25)
[2019-09-04] MEDS ORDERED: PHENERGAN 25 MG25 M1 PO ×2 (02:40→02:41)
[2019-09-04 02:42] VITALS: BP 151/75
--- NOTE | 2019-09-04 11:23 | EKG ---
[place] [address] ELECTROCARDIOGRAM REPORT Name: YUE ANDRADE Room: [facility]#: [id number] Admission: 09/03/19 Attend Phys: Discharge: 09/04/19 Date of : 69 Date of Service: 09/03/192053 Report #: [id number] THIS REPORT FOR: //name// [facility] ED Test Date: 2019-09-03 Test Time: 20:54:15 Pat Name: YUE ANDRADE Department: Room: Gender: F Grievance And Appeals Specialist: MD : 1965 Requested By: Chelle Aguilar Order Number: [id number] MD: Polo Sanford Measurements Intervals [place] Rate: 77 P: -1 TN: 157 QRS: -17 QRSD: 153 T: 121 QT: 466 QTc: 528 Interpretive Statements Sinus rhythm Left bundle branch block Compared to ECG 11/27/2018 22:09:24 No significant changes Electronically Signed On 09-04-2019 11:22:27 CDT by Polo Sanford [email or web address] <ELECTRONICALLY SIGNED> By: Polo Sanford MD, [facility] 09/04/19 1122 53 53 Polo Sanford MD, [facility] /EPI
== END 2019-09-04 02:43 | disposition home or self-care (01) ==
LOC: M.ERS 20:47
PROVIDERS: Emergency Medicine
DX: G43.909 Migraine, unspecified, not intractable, without status migrainosus (principal); N39.0 Urinary tract infection, site not specified; I10 Essential (primary) hypertension; K50.90 Crohn's disease, unspecified, without complications; J45.909 Unspecified asthma, uncomplicated; J44.9 Chronic obstructive pulmonary disease, unspecified; F32.9 Major depressive disorder, single episode, unspecified; F41.9 Anxiety disorder, unspecified; F17.210 Nicotine dependence, cigarettes, uncomplicated; Z90.49 Acquired absence of other specified parts of digestive tract; Z86.14 Personal history of Methicillin resistant Staphylococcus aureus infection; Z91.040 Latex allergy status; Z91.048 Other nonmedicinal substance allergy status; Z88.0 Allergy status to penicillin; Z88.1 Allergy status to other antibiotic agents; Z88.6 Allergy status to analgesic agent; Z88.8 Allergy status to other drugs, medicaments and biological substances

== ENCOUNTER 2019-11-20 12:04 | Emergency (ER) | payer OTHER, MEDICAID ==
[~2019-11-20] VITALS: Ht 175.3 cm; Wt 72.6 kg
[~2019-11-20 12:04] MED LIST changes: +ASA81BEC PO; +ATORVASTATIN CA80 MG PO; +ATROVENT HFA14 GM NASAL; +AZELASTINE205.5 MCG/ NARES; +HYDROCHLOROTHIA25 M1 PO; +LOPERAMIDE2 MG PO; +MACROBID 100 M100 M1 PO; +NAPROSYN500 M1 PO; +NITROSTAT0.4 M1 SUBLING; +NORVASC 2.5 MG2.5 M1 PO; +PAIN RELIEF325 MG PO; +PERCOCET 7.5-31 EAC1 PO; +POTASSIUM20 PO; +UBRELVY100 MG PO; +VITAMIN D21250 MCG PO
[2019-11-20] MEDS ORDERED: APAP W/CODEINE1 TA2 PO (14:34)
[2019-11-20] MEDS ORDERED: NAPROSYN500 MG PO (14:34)
[2019-11-20 14:45] VITALS: BP 144/97
== END 2019-11-20 14:51 | disposition home or self-care (01) ==
LOC: M.ERS 12:04
DX: M25.552 Pain in left hip (principal); R07.81 Pleurodynia; I10 Essential (primary) hypertension; K50.90 Crohn's disease, unspecified, without complications; L40.9 Psoriasis, unspecified; J44.9 Chronic obstructive pulmonary disease, unspecified; M32.9 Systemic lupus erythematosus, unspecified; F17.210 Nicotine dependence, cigarettes, uncomplicated; Z88.5 Allergy status to narcotic agent; Z88.0 Allergy status to penicillin; Z88.1 Allergy status to other antibiotic agents; Z91.040 Latex allergy status; Z88.8 Allergy status to other drugs, medicaments and biological substances; Z88.6 Allergy status to analgesic agent; Z90.49 Acquired absence of other specified parts of digestive tract; Z86.73 Personal history of transient ischemic attack (TIA), and cerebral infarction without residual deficits; Z87.01 Personal history of pneumonia (recurrent); Z86.14 Personal history of Methicillin resistant Staphylococcus aureus infection

== ENCOUNTER 2020-03-16 13:55 | Emergency (ER) | payer OTHER, MEDICAID ==
[~2020-03-16] VITALS: Ht 175.3 cm; Wt 72.6 kg
[~2020-03-16 13:55] MED LIST changes: -ADDERALL; +ADDERALL PO; +APAP W/CODEINE1 TA2 PO
[2020-03-16] MEDS ORDERED: ATIVAN1 M1 PO (14:02)
[2020-03-16 14:26] LABS: ABSOLUTE EOSINOPHILS 0.1 thou/uL (0.0-0.7); ABSOLUTE LYMPHOCYTES 1.7 thou/uL (0.8-5.3); ABSOLUTE MONOCYTES 0.5 thou/uL (0.0-1.2); ABSOLUTE NEUTROPHILS 4.9 thou/uL (1.6-8.1); BASOPHILS 0.2 %; EOSINOPHILS 1.1 %; HEMOGLOBIN 13.4 gm/dL (12.0-15.0); LYMPHOCYTES 23.4 %; MCH 32.1 pg (26.0-34.0); MCHC 35.2 g/dL (28.0-37.0); MCV 91.3 fL (80.0-100.0); MONOCYTES 6.7 %; MPV 7.2 fl. (7.2-11.1); NUCLEATED RBCS 0 /100WBC; PLATELET COUNT* 291 thou/uL (150-400); POLYS 68.6 %; RBC 4.16 mil/uL (4.20-5.00); RDW-CV 12.9 % (10.5-14.5); WBC 7.2 thou/uL (4.0-11.0)
[2020-03-16 14:39] LABS: ANION GAP 11 mmol/L (7-16); BUN 11 mg/dL (7-18); CALCIUM 9.4 mg/dL (8.5-10.1); CHLORIDE 99 mmol/L (98-107); CO2 27 mmol/L (21-32); CREATININE 1.2 mg/dL (0.6-1.3); GLUCOSE 152 mg/dL (70-99); SODIUM 137 mmol/L (136-145)
[2020-03-16 14:40] LABS: APTT 23.8 Seconds (25.0-31.3)
[2020-03-16 14:49] LABS: POTASSIUM 2.8 mmol/L (3.5-5.1)
[2020-03-16 14:53] LABS: ALBUMIN 3.7 g/dL (3.4-5.0); ALKALINE PHOSPHATASE 84 U/L (46-116); CK-MB MASS < 0.5 ng/mL (<0.5-3.6); LIPASE 61 U/L (73-393); MAGNESIUM 1.6 mg/dL (1.8-2.4); NT-PRO BRAIN NAT PEPTIDE 67 pg/mL (<300); SGOT 14 U/L (15-37); SGPT 14 U/L (30-65); TOTAL BILIRUBIN 0.5 mg/dL (<0.1-1.0)
[2020-03-16 15:18] VITALS: BP 105/64
--- NOTE | 2020-03-17 13:12 | EKG ---
[place] [address] ELECTROCARDIOGRAM REPORT Name: YUE ANDRADE Room: [facility]#: [id number] Admission: 03/16/20 Attend Phys: Discharge: 03/16/20 Date of : 69 Date of Service: 03/16/20 1359 Report #: [id number] THIS REPORT FOR: //name// [facility] ED Test Date: 2020-03-16 Test Time: 13:59:57 Pat Name: YUE ANDRADE Department: Room: Gender: F Glass Cutting Machine Feeder: : 1965 Requested By: Edwin Ocampo Order Number: [id number] MD: Lito Cole Measurements Intervals [place] Rate: 95 P: 33 CO: 181 QRS: -18 QRSD: 152 T: 125 QT: 411 QTc: 517 Interpretive Statements Sinus rhythm Left bundle branch block Compared to ECG 09/03/2019 20:54:15 No significant changes Electronically Signed On 03-17-2020 13:12:16 IDEA MAN by Lito Cole [email or web address] <ELECTRONICALLY SIGNED> By: Lito Cole MD, FACC 03/17/20 1312 1359 1359 Lito Cole MD, FAC /EPI
== END 2020-03-16 15:19 | disposition home or self-care (01) ==
LOC: M.ERS 13:55
PROVIDERS: Family Medicine
DX: R07.89 Other chest pain (principal); J44.9 Chronic obstructive pulmonary disease, unspecified; K50.90 Crohn's disease, unspecified, without complications; M32.9 Systemic lupus erythematosus, unspecified; F17.210 Nicotine dependence, cigarettes, uncomplicated; Z88.5 Allergy status to narcotic agent; Z88.0 Allergy status to penicillin; Z88.6 Allergy status to analgesic agent; Z88.1 Allergy status to other antibiotic agents; Z88.8 Allergy status to other drugs, medicaments and biological substances; Z91.041 Radiographic dye allergy status; Z90.49 Acquired absence of other specified parts of digestive tract; Z86.73 Personal history of transient ischemic attack (TIA), and cerebral infarction without residual deficits; Z86.14 Personal history of Methicillin resistant Staphylococcus aureus infection; Z87.01 Personal history of pneumonia (recurrent)

== ENCOUNTER 2020-05-29 12:55 | Emergency (ER) | payer OTHER, MEDICAID ==
[~2020-05-29] VITALS: Ht 175.3 cm; Wt 74.8 kg
[~2020-05-29 12:55] MED LIST changes: +ATIVAN1 M1 PO
[2020-05-29 13:31] LABS: ABSOLUTE EOSINOPHILS 0.2 thou/uL (0.0-0.7); ABSOLUTE LYMPHOCYTES 1.7 thou/uL (0.8-5.3); ABSOLUTE MONOCYTES 0.5 thou/uL (0.0-1.2); BASOPHILS 0.2 %; EOSINOPHILS 2.5 %; HEMATOCRIT 37.2 % (37.0-47.0); HEMOGLOBIN 12.9 gm/dL (12.0-15.0); LYMPHOCYTES 23.4 %; MCH 31.8 pg (26.0-34.0); MCHC 34.6 g/dL (28.0-37.0); MCV 91.7 fL (80.0-100.0); MONOCYTES 6.7 %; MPV 7.2 fl. (7.2-11.1); NUCLEATED RBCS 0 /100WBC; PLATELET COUNT* 233 thou/uL (150-400); POLYS 67.2 %; RBC 4.05 mil/uL (4.20-5.00); RDW-CV 12.2 % (10.5-14.5); WBC 7.4 thou/uL (4.0-11.0)
[2020-05-29 13:41] LABS: ANION GAP 10 mmol/L (7-16); BUN 12 mg/dL (7-18); CALCIUM 9.2 mg/dL (8.5-10.1); CHLORIDE 105 mmol/L (98-107); CO2 26 mmol/L (21-32); GLUCOSE 123 mg/dL (70-99); POTASSIUM 3.5 mmol/L (3.5-5.1); SODIUM 141 mmol/L (136-145)
[2020-05-29 13:43] LABS: APTT 22.5 Seconds (25.0-31.3); INR 0.9; PROTIME 9.9 Seconds (9.20-11.50)
[2020-05-29 13:55] LABS: ALBUMIN 3.5 g/dL (3.4-5.0); ALKALINE PHOSPHATASE 84 U/L (46-116); CK-MB MASS < 0.5 ng/mL (<0.5-3.6); LIPASE 78 U/L (73-393); MAGNESIUM 1.8 mg/dL (1.8-2.4); NT-PRO BRAIN NAT PEPTIDE 54 pg/mL (<300); SGOT 12 U/L (15-37); SGPT 17 U/L (30-65); TOTAL BILIRUBIN 0.4 mg/dL (<0.1-1.0); TOTAL PROTEIN 6.8 g/dL (6.4-8.2)
[2020-05-29 14:16] VITALS: BP 100/59
--- NOTE | 2020-05-29 17:31 | EKG ---
[place] [address] ELECTROCARDIOGRAM REPORT Name: YUE ANDRADE Room: [facility]#: [id number] Admission: 05/29/20 Attend Phys: Discharge: 05/29/20 Date of : 69 Date of Service: 05/29/20 [facility] Report #: [id number] THIS REPORT FOR: //name// [facility] ED Test Date: 2020-05-29 Test Time: 13:00:11 Pat Name: YUE ANDRADE Department: Room: Gender: F Scientific Specialist: : 1965 Requested By: Edwin Ocampo Order Number: [id number] MD: Barrie Christensen Measurements Intervals [place] Rate: 66 P: 0 [place]: 157 QRS: -10 QRSD: 150 T: 89 QT: 498 QTc: 522 Interpretive Statements Sinus rhythm Left bundle branch block Compared to ECG 03/16/2020 13:59:57 No significant changes Electronically Signed On 05-29-2020 17:31:42 MEDICAL RECORD ADMINISTRATOR by Barrie Christensen [email or web address] <ELECTRONICALLY SIGNED> By: Barrie Christensen MD, [facility] 05/29/20 1731 1300 1300 Barrie Christensen MD, [facility] /EPI
== END 2020-05-29 14:17 | disposition home or self-care (01) ==
LOC: M.ERS 12:55
PROVIDERS: Family Medicine
DX: R07.89 Other chest pain (principal); R61 Generalized hyperhidrosis; F32.9 Major depressive disorder, single episode, unspecified; I10 Essential (primary) hypertension; J44.9 Chronic obstructive pulmonary disease, unspecified; F41.9 Anxiety disorder, unspecified; F17.210 Nicotine dependence, cigarettes, uncomplicated; Z90.49 Acquired absence of other specified parts of digestive tract; Z86.73 Personal history of transient ischemic attack (TIA), and cerebral infarction without residual deficits; Z79.899 Other long term (current) drug therapy; Z79.82 Long term (current) use of aspirin; Z88.5 Allergy status to narcotic agent; Z88.0 Allergy status to penicillin; Z88.1 Allergy status to other antibiotic agents; Z88.8 Allergy status to other drugs, medicaments and biological substances; Z91.040 Latex allergy status; Z91.048 Other nonmedicinal substance allergy status

== ENCOUNTER 2020-08-05 20:18 | Emergency (ER) | payer OTHER, MEDICAID ==
[~2020-08-05] VITALS: Ht 175.3 cm; Wt 81.7 kg
[2020-08-05 20:33] LABS: URINE BILIRUBIN NEGATIVE (Negative); URINE BLOOD NEGATIVE (Negative); URINE CLARITY CLEAR; URINE COLOR YELLOW; URINE GLUCOSE-RANDOM NEGATIVE (Negative); URINE KETONES NEGATIVE (Negative); URINE LEUKOCYTES-REFLEX NEGATIVE (Negative); URINE NITRITE-REFLEX NEGATIVE (Negative); URINE PROTEIN NEGATIVE (Negative); URINE SPECIFIC GRAVITY <= 1.005 (1.005-1.030); URINE UROBILINOGEN 0.2 E.U./dl (0.2-1.0)
[2020-08-05] MEDS ORDERED: INVEGA1.5 MG PO (20:38)
[2020-08-05 20:59] LABS: ABSOLUTE EOSINOPHILS 0.2 thou/uL (0.0-0.7); ABSOLUTE MONOCYTES 0.7 thou/uL (0.0-1.2); ABSOLUTE NEUTROPHILS 6.9 thou/uL (1.6-8.1); BASOPHILS 0.2 %; EOSINOPHILS 2.3 %; HEMATOCRIT 37.6 % (37.0-47.0); HEMOGLOBIN 13.3 gm/dL (12.0-15.0); LYMPHOCYTES 20.7 %; MCH 32.3 pg (26.0-34.0); MCHC 35.3 g/dL (28.0-37.0); MCV 91.6 fL (80.0-100.0); MONOCYTES 6.9 %; MPV 7.7 fl. (7.2-11.1); NUCLEATED RBCS 0 /100WBC; PLATELET COUNT* 228 thou/uL (150-400); POLYS 69.9 %; RBC 4.11 mil/uL (4.20-5.00); RDW-CV 12.8 % (10.5-14.5); WBC 9.8 thou/uL (4.0-11.0)
[2020-08-05 21:02] LABS: CALCIUM 9.9 mg/dL (8.5-10.1)
[2020-08-05 21:04] LABS: POTASSIUM 2.9 mmol/L (3.5-5.1)
[2020-08-05 21:07] LABS: ALBUMIN 3.8 g/dL (3.4-5.0); TOTAL BILIRUBIN 0.3 mg/dL (<0.1-1.0); TOTAL PROTEIN 7.3 g/dL (6.4-8.2)
[2020-08-05] MEDS ORDERED: KLOR-CON 1010 MEQ PO (21:53)
[2020-08-05 22:00] VITALS: BP 122/77
== END 2020-08-05 22:00 | disposition home or self-care (01) ==
LOC: M.ERS 20:18
PROVIDERS: Personal Emergency Response Attendant
DX: M54.5 Low back pain (principal); M54.6 Pain in thoracic spine; R10.9 Unspecified abdominal pain; J45.909 Unspecified asthma, uncomplicated; I10 Essential (primary) hypertension; M32.9 Systemic lupus erythematosus, unspecified; F17.210 Nicotine dependence, cigarettes, uncomplicated; Z88.0 Allergy status to penicillin; Z91.040 Latex allergy status; Z88.6 Allergy status to analgesic agent; Z88.5 Allergy status to narcotic agent; Z88.1 Allergy status to other antibiotic agents; Z88.8 Allergy status to other drugs, medicaments and biological substances; Z90.49 Acquired absence of other specified parts of digestive tract; Z86.73 Personal history of transient ischemic attack (TIA), and cerebral infarction without residual deficits; Z86.14 Personal history of Methicillin resistant Staphylococcus aureus infection; Z87.01 Personal history of pneumonia (recurrent)

== ENCOUNTER 2020-10-15 15:46 | Emergency (ER) | payer OTHER, MEDICAID ==
[~2020-10-15] VITALS: Ht 175.3 cm; Wt 83.9 kg
[~2020-10-15 15:46] MED LIST changes: +INVEGA1.5 MG PO; +KLOR-CON 1010 MEQ PO
[2020-10-15 15:54] VITALS: BP 113/75
[2020-10-15] MEDS ORDERED: INVEGA SUS117 MG/0.7 IM (15:58)
[2020-10-15] MEDS ORDERED: PREDNISONE 20 M20 M1 PO (16:37)
[2020-10-15] MEDS ORDERED: ZPAK PO (16:37)
--- NOTE | 2020-10-17 12:44 | EKG ---
[place] [address] ELECTROCARDIOGRAM REPORT Name: YUE ANDRADE Room: [facility]#: [id number] Admission: 10/15/20 Attend Phys: Discharge: 10/15/20 Date of : 69 Date of Service: 10/15/20 1551 Report #: [id number] THIS REPORT FOR: //name// [facility] ED Test Date: 2020-10-15 Test Time: 15:51:58 Pat Name: YUE ANDRADE Department: Room: Gender: F Acute Care Nursing Assistant: DSL : 1965 Requested By: Edwin Ocampo Order Number: [id number] Loco MD: Barrie Christensen Measurements Intervals [place] Rate: 94 P: 36 NE: 151 QRS: -14 QRSD: 149 T: 107 QT: 419 QTc: 525 Interpretive Statements Sinus rhythm Probable left atrial enlargement Left bundle branch block Compared to ECG 05/29/2020 13:00:11 No significant changes Electronically Signed On 10-17-2020 12:43:50 CDT by Barrie Christensen [email or web address] <ELECTRONICALLY SIGNED> By: Barrie Christensen MD, [facility] 10/17/20 1243 1551 1551 Barrie Christensen MD, [facility] /EPI
== END 2020-10-15 16:52 | disposition home or self-care (01) ==
LOC: M.ERS 15:46
DX: J40 Bronchitis, not specified as acute or chronic (principal); M32.9 Systemic lupus erythematosus, unspecified; J44.9 Chronic obstructive pulmonary disease, unspecified; J45.909 Unspecified asthma, uncomplicated; I10 Essential (primary) hypertension; F17.210 Nicotine dependence, cigarettes, uncomplicated; Z88.5 Allergy status to narcotic agent; Z88.0 Allergy status to penicillin; Z91.040 Latex allergy status; Z88.8 Allergy status to other drugs, medicaments and biological substances; Z90.49 Acquired absence of other specified parts of digestive tract; Z86.73 Personal history of transient ischemic attack (TIA), and cerebral infarction without residual deficits; Z86.14 Personal history of Methicillin resistant Staphylococcus aureus infection; Z87.01 Personal history of pneumonia (recurrent); Z86.718 Personal history of other venous thrombosis and embolism

== ENCOUNTER 2021-02-14 15:25 | Emergency (ER) | payer OTHER, MEDICAID ==
[~2021-02-14] VITALS: Ht 175.3 cm; Wt 91.2 kg
[~2021-02-14 15:25] MED LIST changes: +INVEGA SUS117 MG/0.7 IM
[2021-02-14 16:01] LABS: ABSOLUTE BASOPHILS 0.1 thou/uL (0.0-0.2); ABSOLUTE EOSINOPHILS 0.2 thou/uL (0.0-0.7); ABSOLUTE MONOCYTES 0.6 thou/uL (0.0-1.2); BASOPHILS 0.7 %; LYMPHOCYTES 19.1 %; NUCLEATED RBCS 0 /100WBC; WBC 10.7 thou/uL (4.0-11.0)
[2021-02-14 16:02] LABS: ABSOLUTE NEUTROPHILS 7.7 thou/uL (1.6-8.1); EOSINOPHILS 1.8 %; HEMATOCRIT 41.6 % (37.0-47.0); HEMOGLOBIN 14.7 gm/dL (12.0-15.0); MCH 31.9 pg (26.0-34.0); MCHC 35.4 g/dL (28.0-37.0); MCV 90.1 fL (80.0-100.0); MPV 7.9 fl. (7.2-11.1); PLATELET COUNT* 270 thou/uL (150-400); POLYS 72.4 %; RBC 4.62 mil/uL (4.20-5.00)
[2021-02-14 16:10] LABS: CALCIUM 9.8 mg/dL (8.5-10.1); CREATININE 0.8 mg/dL (0.6-1.3)
[2021-02-14 16:11] LABS: POTASSIUM 2.9 mmol/L (3.5-5.1)
[2021-02-14 16:20] LABS: MAGNESIUM 1.8 mg/dL (1.8-2.4); TOTAL BILIRUBIN 0.5 mg/dL (<0.1-1.0); TOTAL PROTEIN 7.6 g/dL (6.4-8.2)
[2021-02-14 16:40] VITALS: BP 124/67
--- NOTE | 2021-02-15 10:18 | EKG ---
[place] [address] ELECTROCARDIOGRAM REPORT Name: YUE ANDRADE Room: [facility]#: [id number] Admission: 02/14/21 Attend Phys: Discharge: 02/14/21 Date of : [birth year] Date of Service: 02/14/21 1532 Report #: [id number] THIS REPORT FOR: //name// [facility] ED Test Date: 2021-02-14 Test Time: 15:32:45 Pat Name: YUE ANDRADE Department: Room: Gender: F Powder Compounder: SANDRA : 1965 Requested By: Edwin Ocampo Order Number: [id number] MD: Polo Sanford Measurements Intervals [place] Rate: 78 P: 2 NE: 155 QRS: -21 QRSD: 157 T: 113 QT: 475 QTc: 542 Interpretive Statements Sinus rhythm Consider left atrial enlargement Left bundle branch block Baseline wander in lead(s) V2 Compared to ECG 10/15/2020 15:51:58 No significant changes Electronically Signed On 02-15-2021 10:18:39 TREADLE CUT OFF SAW OPERATOR by Polo Sanford [email or web address] <ELECTRONICALLY SIGNED> By: Polo Sanford MD, FAC 02/15/21 1018 1532 153 Polo Sanford MD, [facility] /EPI
== END 2021-02-14 16:40 | disposition home or self-care (01) ==
LOC: M.ERS 15:25
PROVIDERS: Family Medicine
DX: R07.89 Other chest pain (principal); F32.9 Major depressive disorder, single episode, unspecified; J44.9 Chronic obstructive pulmonary disease, unspecified; I10 Essential (primary) hypertension; F41.9 Anxiety disorder, unspecified; F17.210 Nicotine dependence, cigarettes, uncomplicated; Z79.82 Long term (current) use of aspirin; Z79.899 Other long term (current) drug therapy; Z90.49 Acquired absence of other specified parts of digestive tract; Z88.5 Allergy status to narcotic agent; Z88.0 Allergy status to penicillin; Z91.040 Latex allergy status; Z88.1 Allergy status to other antibiotic agents